=== PATIENT | female | born 1990 | race Caucasian/White ===

== ENCOUNTER → 2018-01-27 10:18 | Outpatient (CLI) | payer OTHER, SELFPAY ==
[2018-01-27 13:29] LABS: Free T3, Triiodothyronine Free 3.82 pg/mL (2.77-5.27); Free T4, Direct Thyroxine 1.57 ng/dL (0.78-2.19)
[2018-01-27 13:42] LABS: Thyroid Stimulating Hormone 0.02 uIU/mL (0.47-4.68)
== END ==
PROVIDERS: Visit Provider Family Medicine
DX: E89.0 Postprocedural hypothyroidism (principal)
CPT/HCPCS: 36415; 84439; 84443; 84481

== ENCOUNTER 2018-03-16 14:51 | Emergency (ER) | payer OTHER, SELFPAY ==
[2018-03-16 14:55] VITALS: BP 113/76; PULSE 75; RESP 15; TEMP 36.1; O2SAT 99; BMI 33.6
--- NOTE | 2018-03-16 14:57 | DI.RAD.S_ITS ---
PROCEDURE: XR FOOT LT MIN 3V INDICATIONS: left foot pain after fall TECHNIQUE: 3 views of the foot were acquired. COMPARISON: None. FINDINGS: Bones: No fractures or dislocations. No suspicious bony lesions. There is a mild degree of metatarsus primus varus and hallux of this morphology with slight bunion formation at the medial first metatarsal head Soft tissues: No tibiotalar joint effusion. Achilles tendon appears normal. IMPRESSION: Podiatry related findings at the first ray and medial first metatarsal head but no fracture or traumatic subluxation is seen. Dictated by: Barrera Teresa M.D. on 03/16/2018 at 15:26 Approved by: Barrera Teresa M.D. on 03/16/2018 at 15:27
--- NOTE | 2018-03-16 17:01 | ED_ITS ---
HPI - Extremity Injury (Lower) <Liss Beaulieu PA-C - Last Filed: 03/16/18 21:28> General Chief Complaint: Extremity Injury, Lower Stated Complaint: left foot injury from fall down stairs Time Seen by Provider: 03/16/18 15:40 Source: patient Mode of arrival: ambulatory Limitations: no limitations History of Present Illness HPI Narrative: This 27-year-old female states that she slipped going down stairs and missed the last step earlier. She inverted her left ankle and foot and has had pain on the outside of her ft since then. It is painful to bear weight and walk but she is able to walk in her stiff-soled slippers. She denies pain in the ankle. She denies hitting her head, actually falling, any other injury. She has not taken any ibuprofen or other medication for this at home. She has not noted any swelling Related Data Home Medications Medication Instructions Recorded Confirmed bupropion HCl SR 100 mg tablet,12 100 mg PO DAILY 01/23/18 01/27/18 hr sustained-release cetirizine 10 mg capsule 10 mg PO DAILY 01/23/18 01/27/18 cholecalciferol (vitamin D3) 5,000 5,000 unit PO DAILY 01/23/18 01/27/18 unit tablet 1 tab PO DAILY 01/23/18 01/27/18 vitamin,calcium,thcunela-xnqj-glmmh acid tablet sertraline 100 mg tablet 100 mg PO DAILY 01/23/18 01/27/18 Previous Rx's Medication Instructions Recorded sertraline 50 mg tablet 50 mg PO DAILY #30 tab 01/23/18 levothyroxine 137 mcg tablet 137 mcg PO DAILY #30 tab 01/31/18 Allergies Allergy/AdvReac Type Severity Reaction Status Date / Time No Known Drug Allergies Allergy Verified 03/16/18 14:55 Review of Systems <Liss Beaulieu PA-C - Last Filed: 03/16/18 21:28> Review of Systems ROS Unobtainable: All systems reviewed & are unremarkable except as noted in HPI and below Exam <Liss Beaulieu PA-C - Last Filed: 03/16/18 21:28> Narrative Exam Narrative: GENERAL: Patient is sitting comfortably DERMATOLOGIC: Left foot no abrasions or ecchymoses MUSCULOSKELETAL: Left foot and ankle, no effusion. Tender over the left 4th and 5th mid metatarsals, no tenderness elsewhere about the foot or ankle. Full range of motion of the ankle. Able to dorsi and plantar flex toes against resistance with and point tenderness but strength intact NEUROVASCULAR: Left foot is warm and pink with intact pedal pulses and sensation grossly intact Initial Vital Signs Initial Vital Signs: Vital Signs Temperature 97.0 F L 03/16/18 14:55 Pulse Rate 75 03/16/18 14:55 Respiratory Rate 15 03/16/18 14:55 Blood Pressure 113/76 03/16/18 14:55 Pulse Oximetry 99 03/16/18 14:55 <Humberto Houston DO - Last Filed: 03/17/18 07:43> Initial Vital Signs Initial Vital Signs: Vital Signs Temperature 97.0 F L 03/16/18 14:55 Pulse Rate 75 03/16/18 14:55 Respiratory Rate 15 03/16/18 14:55 Blood Pressure 113/76 03/16/18 14:55 Pulse Oximetry 99 03/16/18 14:55 Course <LUCY Gagnon Last Filed: 03/16/18 21:28> Orders Ordered: ED Orders 03/16/18 14:57 XR foot LT min 3V Stat Vital Signs - 8 hr 03/16/18 14:55 03/16/18 17:13 Temperature 97.0 F L Pulse Rate 75 70 Respiratory Rate 15 16 Blood Pressure 113/76 111/78 Pulse Oximetry 99 99 <DO Tanya Monsalve Last Filed: 03/17/18 07:43> Orders Ordered: ED Orders 03/16/18 14:57 XR foot LT min 3V Stat Vital Signs - 8 hr 03/16/18 14:55 03/16/18 17:13 Temperature 97.0 F L Pulse Rate 75 70 Respiratory Rate 15 16 Blood Pressure 113/76 111/78 Pulse Oximetry 99 99 MDM - Extremity Injury (Lower) <LUCY Gagnon Last Filed: 03/16/18 21:28> Imaging Data foot: Radiologist's impression: [address] [address] XRay Report Signed Patient: Sabrina Mccoy#: [id number] : 1990Acct:[id number] Age/Sex: 27 / FDate of Service: 03/16/18 Loc: ED Accession Number: [id number] Procedure: XR foot LT min 3V Ordering Provider: Humberto Houston D.O. PROCEDURE: XR FOOT LT MIN 3V INDICATIONS: left foot pain after fall TECHNIQUE: 3 views of the foot were acquired. COMPARISON: None. FINDINGS: Bones: No fractures or dislocations. No suspicious bony lesions. There is a mild degree of metatarsus primus varus and hallux of this morphology with slight bunion formation at the medial first metatarsal head Soft tissues: No tibiotalar joint effusion. Achilles tendon appears normal. IMPRESSION: Podiatry related findings at the first ray and medial first metatarsal head but no fracture or traumatic subluxation is seen. Dictated by: Barrera Teresa M.D. on 03/16/2018 at 15:26 Approved by: Barrera Teresa M.D. on 03/16/2018 at 15:27 Discharge Plan Departure Patient Disposition: Home Clinical Impression: Foot sprain Discharge Date/Time: 03/16/18 17:13 Interventions: ED Discharge Assessment Last Done: 03/16/18 17:13 Instructions: DI for Foot Sprain Activity Restrictions/Additional Instructions: Your x-ray today does not show any acute break, however as we talked about if you are not getting better over the next week, the x-rays should be repeated as occasionally a fracture will not show up on initial x-rays. When you get home, please elevate the foot, apply ice and take 800 mg of ibuprofen. Continue taking that every 8 hr at least for the next couple of days. You can take Tylenol in addition as needed. Gentle walking in a stiff-soled shoe is okay, but please avoid heavy exertion on the foot. Prescriptions: No Action levothyroxine 137 mcg tablet 137 mcg PO DAILY Qty: 30 RF: 2 sertraline [Zoloft] 100 mg tablet 100 mg PO DAILY RF: 0 bupropion HCl [Wellbutrin SR] 100 mg tablet sustained-release 12 hr 100 mg PO DAILY RF: 0 prenat.vits,wes,oze-hcxi-wtyvi tablet 1 tab PO DAILY RF: 0 cholecalciferol (vitamin D3) 5,000 unit tablet 5,000 unit PO DAILY RF: 0 cetirizine [Zyrtec] 10 mg capsule 10 mg PO DAILY RF: 0 sertraline 50 mg tablet 50 mg PO DAILY Qty: 30 RF: 0 Referrals: Tania Mathew DO [Physician] - <Humberto Houston DO - Last Filed: 03/17/18 07:43> Cosign ED Attending [place] Attestation: I was available for consultation during this patient's emergency department encounter
[2018-03-16 17:13] VITALS: BP 111/78; PULSE 70; RESP 16; O2SAT 99
== END 2018-03-16 17:13 | disposition home or self-care (01) ==
PROVIDERS: Emergency Provider Internal Medicine
DX: S93.602A Unspecified sprain of left foot, initial encounter (principal); W10.8XXA Fall (on) (from) other stairs and steps, initial encounter
CPT/HCPCS: 73630; 99282; 99283

== ENCOUNTER → 2018-03-21 15:03 | Outpatient (CLI) | payer OTHER, SELFPAY ==
[2018-03-21 17:11] LABS: Free T3, Triiodothyronine Free 3.07 pg/mL (2.77-5.27); Free T4, Direct Thyroxine 1.11 ng/dL (0.78-2.19)
[2018-03-21 17:24] LABS: Thyroid Stimulating Hormone 0.31 uIU/mL (0.47-4.68)
== END ==
PROVIDERS: PCP Family Medicine; Visit Provider Family Medicine
DX: E03.9 Hypothyroidism, unspecified (principal)
CPT/HCPCS: 36415; 84439; 84443; 84481

== ENCOUNTER → 2018-05-03 14:02 | Outpatient (CLI) | payer OTHER, SELFPAY ==
[2018-05-03 14:36] LABS: Add Manual Diff / Slide Review NO; Basophils Absolute Auto 0 /uL (0-100); Basophils Percent Auto 0.5 % (0-2); Eosinophils Absolute Auto 200 /uL (0-450); Eosinophils Percent Auto 3.8 % (2-4); Hematocrit 38.3 % (36-46); Hemoglobin 13.1 g/dL (12.0-16.0); Lymphocytes Absolute Auto 1100 /uL (1100-4500); Mean Corpuscular HGB Conc 34.2 % (30-36); Mean Corpuscular Hemoglobin 28.6 PG (26-34); Mean Corpuscular Volume 83.7 fL (80-100); Monocytes Absolute Auto 500 /uL (0-900); Monocytes Percent Auto 7.8 % (3-14); Neutrophils Absolute Auto 4500 /uL (1500-7000); Neutrophils Percent Auto 70.9 % (50-75); Platelet Count 276 X10^3/uL (150-400); Red Blood Cell Count 4.58 X10^6/uL (4.0-5.2); Red Cell Distribution Width 12.4 % (11.6-14.8); White Blood Cell Count 6.4 X10^3/uL (4.5-11.0)
[2018-05-03 15:20] LABS: Free T3, Triiodothyronine Free 4.24 pg/mL (2.77-5.27)
[2018-05-03 15:34] LABS: Thyroid Stimulating Hormone 1.79 uIU/mL (0.47-4.68)
[2018-05-03 15:49] LABS: Vitamin B12 704 pg/mL (239-931)
[2018-05-03 17:09] LABS: Vitamin D 25 Hydroxy (D3) 37.2 ng/mL (30.0-100.0)
[2018-05-08 18:49] LABS: Zinc 46 mcg/dL (60-130)
== END ==
PROVIDERS: PCP Family Medicine; Visit Provider Family Medicine
DX: E89.0 Postprocedural hypothyroidism (principal); L71.0 Perioral dermatitis; D64.9 Anemia, unspecified
CPT/HCPCS: 36415; 82306; 82607; 84439; 84443; 84481; 84630; 85025

== ENCOUNTER → 2018-07-31 15:10 | Outpatient (CLI) | payer OTHER, SELFPAY ==
[2018-07-31 16:31] LABS: Free T3, Triiodothyronine Free 4.07 pg/mL (2.77-5.27); Free T4, Direct Thyroxine 0.59 ng/dL (0.78-2.19)
[2018-07-31 16:45] LABS: Thyroid Stimulating Hormone 1.52 uIU/mL (0.47-4.68)
== END ==
PROVIDERS: PCP Family Medicine; Visit Provider Family Medicine
DX: E89.0 Postprocedural hypothyroidism (principal)
CPT/HCPCS: 36415; 84439; 84443; 84481

== ENCOUNTER → 2018-09-07 08:43 | Outpatient (CLI) | payer OTHER, SELFPAY ==
--- NOTE | 2018-09-07 08:43 | DI.US.S_ITS ---
PROCEDURE: US ABDOMEN COMPLETE INDICATIONS: RIGHT UPPER QUADRANT PAIN, DIARRHEA TECHNIQUE: Real-time scanning was performed of the abdominal and retroperitoneal organs, with image documentation. COMPARISON: None. FINDINGS: Liver: Liver is normal in size and homogeneous in echotexture. Gallbladder: Multiple sub-5 mm gallstones, demonstrating mobile appearance. No wall thickening. No pericholecystic fluid. No sonographic Beyer sign. Biliary ducts: Intrahepatic bile ducts are non-dilated. Extrahepatic bile duct caliber measures 3-4 mm. Normal is 6-7 mm or less in diameter, or 10 mm or less post-cholecystectomy. Pancreas: Visualized portions of the pancreas are sonographically normal. Spleen: Spleen is normal in size and homogeneous in echotexture. Echogenic presumed splenic calcified granuloma measuring 6 mm. Kidneys: Kidneys are normal in size and echotexture. Right kidney measures 10.7 cm long; left kidney measures 12.2 cm long. No hydronephrosis or nephrolithiasis. No solid masses. Aorta: Visualized aorta is normal in caliber at less than 3 cm. Iliacs: Proximal common iliac arteries are normal in caliber at less than 2.5 cm. IVC: Intrahepatic inferior vena cava is patent. Miscellaneous: No free abdominal fluid. IMPRESSION: Cholelithiasis, although no other sonographic criteria for acute cholecystitis. Please correlate clinically and with LFTs. Dictated by: Jeffery Nunes M.D. on 09/07/2018 at 11:29 Approved by: Jeffery Nunes M.D. on 09/07/2018 at 11:31
== END ==
PROVIDERS: PCP Family Medicine; Visit Provider Family Medicine
DX: R10.11 Right upper quadrant pain (principal); R19.7 Diarrhea, unspecified; K80.20 Calculus of gallbladder without cholecystitis without obstruction; Z87.19 Personal history of other diseases of the digestive system
CPT/HCPCS: 76700

== ENCOUNTER → 2018-09-21 16:00 | Outpatient (CLI) | payer OTHER, SELFPAY ==
[2018-09-21 17:25] LABS: Free T3, Triiodothyronine Free 3.46 pg/mL (2.77-5.27); Free T4, Direct Thyroxine 0.54 ng/dL (0.78-2.19)
[2018-09-21 17:39] LABS: Thyroid Stimulating Hormone 2.05 uIU/mL (0.47-4.68)
== END ==
PROVIDERS: PCP Family Medicine; Visit Provider Family Medicine
DX: E89.0 Postprocedural hypothyroidism (principal); F41.1 Generalized anxiety disorder
CPT/HCPCS: 36415; 84439; 84443; 84481

== ENCOUNTER 2018-10-30 11:30 | Day surgery (SDC) | payer OTHER, SELFPAY ==
[2018-10-19 13:54] VITALS: BMI 31.8
[2018-10-30] VITALS (10 sets, daily range): BP systolic 89–117; BP diastolic 49–78; PULSE 57–89; RESP 7–16; TEMP 36.3–37.2; O2SAT 99–100; BMI 30.9
--- NOTE | 2018-10-30 | PATH_ITS ---
[facility] Accession Number: [id number] . 01 Material submitted: . gallbladder - GALLBLADDER . 01 Clinical history: . CALCULUS OF GALLBLADDER WITHOUT CHOLECYSTITIS CHOLECYSTITIS, UNSPECIFIED . 01 Diagnosis: Gallbladder, Cholecystectomy: Mild chronic cholecystitis and cholelithiasis. Benign, reactive lymph node of cystic duct is also present. Negative for atypia and malignancy. MRV 11/02/2018 1536 Local . 01 Electronically signed: . Hernandez Sharma MD, Pathologist NPI- [id number] . 01 Gross description: . Received in formalin, labeled gallbladder, is a perforated gallbladder (length-11.5 cm, diameter-2.6 cm) with pale green smooth shiny serosa and a patent cystic duct. A possible lymph node (0.7 x 0.6 x 0.2 cm) is identified. The lumen contains dark green gelatinous bile and multiple lang-yellow smooth hard and partially friable calculi (9.5 x 3.5 x 2.5 cm in aggregate). The mucosa is lang-green smooth and flat. The wall is up to 0.1 cm thick. No nodules, masses or lesions are identified. Section code: (A1) cystic duct resection margin and two serial sections from the body; (A2) two longitudinal sections from the fundus; (A3) one trisected lymph node. ([id number]) /MRV 10/31/2018 1008 Local . 01 Pathologist provided ICD-10: K80.20, K81.9 . 01 CPT . 856852 Performed at: [address], [place], [place] [id number] MD Sd Arambula MD Phone: [phone]
[2018-10-30] MEDS: LACTATED RINGERS 1,000 ML 42 ML IV (12:20)
--- NOTE | 2018-10-30 12:23 | PM.PREOP ---
Pre-operative Note Interval Note History & Physical reviewed/Exam performed by Physician: Yes Changes to H&P: No H&P completed within 30 days and has changed as indicated here:: Please see ED note from October 03
[2018-10-30] MEDS: SCOPOLAMINE 1 PATCH TOP (12:32)
[2018-10-30] MEDS: ACETAMINOPHEN 325 MG TABLET 975 MG PO (12:32)
[2018-10-30] MEDS: CEFAZOLIN 2 GM/100 ML FROZ.PIGGY IV (12:50)
--- NOTE | 2018-10-30 13:25 | SUR.OPER ---
Supine on padded OR bed, head on pillow, safety belt at thigh, left arm padded and tucked at side. Right arm secured on padded arm oard <90 degrees abduction. Legs uncrossed. Padded footboard in place. Tape over blanket to secure lower legs.
[2018-10-30] MEDS: BUPIVACAINE 0.5% (PF) VIAL 30 ML INJ (13:36)
--- NOTE | 2018-10-30 14:19 | PM.OP.1 ---
Operative Date/Time/Diagnoses Date of procedure: 10/30/18 Time of procedure: 14:21 Pre-op diagnosis: Cholelithiasis cholecystitis chronic Post-op diagnosis: same Procedure & Clinicians Procedure: Laparoscopic cholecystectomy Same procedure as scheduled: Yes Indications: Patient with symptomatic gallbladder disease and stones within the duct. No history of jaundice. Surgeon: Gutierrez Deshpande Click Yes if Unassisted: Yes Anesthesia Type: General Operative Notes Findings: Gallbladder filled with stones Closure Type: primary Specimen(s): other (Gallbladder and contents) Prosthetic devices, grafts, tissues, transplants, or devices: None Estimated Blood Loss (mL): 10 Blood products transfused: none Procedure in detail: The patient was placed supine on the operating room table and underwent general endotracheal anesthesia. The patient was prepped and draped in the usual fashion. Local anesthetic was infiltrated near the umbilicus and curvilinear incision made and carried down through fascia into the peritoneal cavity. Stay sutures of 0 Vicryl were placed in the fascia. A 12 mm port was placed. The abdomen was insufflated. The patient was repositioned. Local anesthetic was infiltrated in 3 areas under the right costal margin and 3 small incisions made followed by placing 3 5 mm ports under direct laparoscopic camera vision internally. The gallbladder was grasped and elevated. Dissection was begun near its end. The right hepatic artery was readily visible within the field in the segun. I dissected very carefully to avoid injury to it. A ductal structure singular nature going directly the gallbladder was from surrounding structures and 3 clips were placed across it. It was divided leaving 2 in the patient. In a similar fashion small vascular structures were also handled. Care was taken to avoid injury to the major artery. The gallbladder was then dissected from its bed in the liver using cautery.. It was detached and removed through the umbilical port. the port sites were all irrigated. The stay sutures at the umbilicus were elevated. A 2 0 PDS suture was placed between them. The Vicryl and PDS sutures were then tied. The skin in all areas was closed with interrupted 4 0 Vicryl subcuticular stitches. Steri-Strips and Mastisol were applied. Band-Aids were placed and the patient was awakened, extubated and taken to the recovery area in good condition. Complications: none Post-operative Condition: stable Disposition: PACU
[2018-10-30] MEDS: fentaNYL 100 MCG/2 ML INJ 50 MCG IV ×2 (14:31→14:45)
--- NOTE | 2018-10-30 14:33 | SUR.PHASEI ---
Pt arrived, pb nye applied, shakes resolved. medicated with fentanyl see emar. report to megan sterling.
[2018-10-30] MEDS: OXYCODONE IR 5 MG TABLET PO (14:57)
== END 2018-10-30 15:59 | disposition home or self-care (01) ==
PROVIDERS: PCP Family Medicine; Visit Provider Specialist
PROC: 0FT44ZZ Resection of Gallbladder, Percutaneous Endoscopic Approach (ICD-10-PCS; CPT 47562; principal; 2018-10-30 12:45)
DX: K80.10 Calculus of gallbladder with chronic cholecystitis without obstruction; F41.9 Anxiety disorder, unspecified; F32.9 Major depressive disorder, single episode, unspecified; E03.9 Hypothyroidism, unspecified
CPT/HCPCS: 47562; J0330; J0690; J1100; J1885; J2405; J2704; J3010

== ENCOUNTER → 2018-11-24 13:00 | Outpatient (CLI) | payer OTHER, SELFPAY ==
[2018-11-24 15:31] LABS: Free T3, Triiodothyronine Free 5.16 pg/mL (2.77-5.27); Free T4, Direct Thyroxine 0.63 ng/dL (0.78-2.19)
[2018-11-24 15:45] LABS: Thyroid Stimulating Hormone 3.78 uIU/mL (0.47-4.68)
== END ==
PROVIDERS: PCP Family Medicine; Visit Provider Family Medicine
DX: E89.0 Postprocedural hypothyroidism (principal)
CPT/HCPCS: 36415; 84439; 84443; 84481

== ENCOUNTER → 2018-12-13 17:39 | Outpatient (CLI) | payer OTHER, SELFPAY ==
--- NOTE | 2018-12-13 17:43 | DI.RAD.S_ITS ---
PROCEDURE: XR SHOULDER LT MIN 2V INDICATIONS: Pain, decreased ROM, r/o AC separation TECHNIQUE: 3 views of the shoulder were acquired. COMPARISON: None. FINDINGS: Bones: No acute fractures or dislocations. No suspicious bony lesions. Visualized ribs appear intact. The acromioclavicular interval measures within normal limits. The coracoclavicular interval measures at the upper limits of normal. Soft tissues: No suspicious soft tissue calcifications. IMPRESSION: Left shoulder without acute fracture or dislocation. Normal acromioclavicular interval. The coracoclavicular interval measures at the upper limits of normal. If there is persistent clinical concern for acromioclavicular joint separation, recommend dedicated imaging of the acromioclavicular joint with and without weights. Dictated by: Rolo Torres M.D. on 12/13/2018 at 18:01 Approved by: Rolo Torres M.D. on 12/13/2018 at 18:03
== END ==
PROVIDERS: PCP Family Medicine; Visit Provider Physician Assistant
DX: M25.512 Pain in left shoulder (principal)
CPT/HCPCS: 73030

== ENCOUNTER → 2019-01-29 10:02 | Outpatient (CLI) | payer OTHER, SELFPAY ==
[2019-01-29 11:40] LABS: Free T3, Triiodothyronine Free 4.93 pg/mL (2.77-5.27); Free T4, Direct Thyroxine 0.56 ng/dL (0.78-2.19)
[2019-01-29 11:53] LABS: Thyroid Stimulating Hormone 3.46 uIU/mL (0.47-4.68)
== END ==
PROVIDERS: PCP Family Medicine; Visit Provider Family Medicine
DX: E89.0 Postprocedural hypothyroidism (principal)
CPT/HCPCS: 36415; 84439; 84443; 84481

== ENCOUNTER → 2019-03-27 11:02 | Outpatient (CLI) | payer OTHER, SELFPAY ==
[2019-03-27 12:48] LABS: Free T4, Direct Thyroxine 0.65 ng/dL (0.78-2.19)
[2019-03-27 13:02] LABS: Thyroid Stimulating Hormone 0.58 uIU/mL (0.47-4.68)
== END ==
PROVIDERS: PCP Family Medicine; Referring Provider Family Medicine; Visit Provider Family Medicine
DX: E89.0 Postprocedural hypothyroidism (principal)
CPT/HCPCS: 36415; 84439; 84443; 84481

== ENCOUNTER → 2019-09-19 10:23 | Outpatient (CLI) | payer OTHER, SELFPAY ==
[2019-09-19 12:41] LABS: Free T4, Direct Thyroxine 0.59 ng/dL (0.78-2.19)
[2019-09-19 12:55] LABS: Thyroid Stimulating Hormone 1.05 uIU/mL (0.47-4.68)
== END ==
PROVIDERS: PCP Family Medicine; Referring Provider Family Medicine; Visit Provider Family Medicine
DX: E89.0 Postprocedural hypothyroidism (principal)
CPT/HCPCS: 36415; 84439; 84443; 84481

== ENCOUNTER → 2019-11-07 17:03 | Outpatient (CLI) | payer OTHER, SELFPAY ==
[2019-11-07 18:40] LABS: Free T3, Triiodothyronine Free 2.91 pg/mL (2.77-5.27); Free T4, Direct Thyroxine 1.13 ng/dL (0.78-2.19)
[2019-11-07 18:54] LABS: Thyroid Stimulating Hormone 0.223 uIU/mL (0.47-4.68)
== END ==
PROVIDERS: PCP Family Medicine; Referring Provider Family Medicine; Visit Provider Family Medicine
DX: E89.0 Postprocedural hypothyroidism (principal)
CPT/HCPCS: 36415; 84439; 84443; 84481

== ENCOUNTER → 2020-02-05 11:41 | Outpatient (CLI) | payer OTHER, SELFPAY ==
[2020-02-05 12:11] LABS: Add Manual Diff / Slide Review NO; Basophils Absolute Auto 100 /uL (0-100); Basophils Percent Auto 0.8 % (0-2); Eosinophils Absolute Auto 200 /uL (0-450); Eosinophils Percent Auto 2.9 % (2-4); Hematocrit 34.7 % (36-46); Hemoglobin 11.7 g/dL (12.0-16.0); Lymphocytes Absolute Auto 1800 /uL (1100-4500); Lymphocytes Percent Auto 27.5 % (25-40); Mean Corpuscular HGB Conc 33.7 % (30-36); Mean Corpuscular Hemoglobin 28.7 PG (26-34); Mean Corpuscular Volume 85.3 fL (80-100); Monocytes Absolute Auto 400 /uL (0-900); Monocytes Percent Auto 6.6 % (3-14); Neutrophils Absolute Auto 4100 /uL (1500-7000); Neutrophils Percent Auto 62.2 % (50-75); Platelet Count 276 X10^3/uL (150-400); Red Blood Cell Count 4.07 X10^6/uL (4.0-5.2); Red Cell Distribution Width 12.8 % (11.6-14.8); White Blood Cell Count 6.6 X10^3/uL (4.5-11.0)
[2020-02-05 12:22] LABS: Hemoglobin A1C% w Est Avg Glu 5.1 % (4.0-6.0)
[2020-02-05 12:45] LABS: Free T3, Triiodothyronine Free 3.19 pg/mL (2.77-5.27); Free T4, Direct Thyroxine 1.36 ng/dL (0.78-2.19)
[2020-02-05 12:59] LABS: Thyroid Stimulating Hormone < 0.015 uIU/mL (0.47-4.68)
== END ==
PROVIDERS: PCP Family Medicine; Referring Provider Family Medicine; Visit Provider Family Medicine
DX: E89.0 Postprocedural hypothyroidism (principal); Z13.0 Encounter for screening for diseases of the blood and blood-forming organs and certain disorders involving the immune mechanism; Z83.3 Family history of diabetes mellitus
CPT/HCPCS: 36415; 83036; 84439; 84443; 84481; 85025

== ENCOUNTER 2020-03-29 14:21 | Emergency (ER) | payer OTHER, SELFPAY ==
[2020-03-29 14:45] VITALS: BP 124/90; PULSE 87; RESP 18; TEMP 36.9; O2SAT 99; BMI 30.9
[2020-03-29 14:55] LABS: Add Manual Diff / Slide Review NO; Basophils Absolute Auto 100 /uL (0-100); Basophils Percent Auto 0.6 % (0-2); Eosinophils Absolute Auto 0 /uL (0-450); Eosinophils Percent Auto 0.5 % (2-4); Hematocrit 40.1 % (36-46); Hemoglobin 13.6 g/dL (12.0-16.0); Lymphocytes Absolute Auto 2000 /uL (1100-4500); Lymphocytes Percent Auto 19.6 % (25-40); Mean Corpuscular Volume 85.3 fL (80-100); Monocytes Absolute Auto 600 /uL (0-900); Monocytes Percent Auto 5.7 % (3-14); Neutrophils Absolute Auto 7500 /uL (1500-7000); Neutrophils Percent Auto 73.6 % (50-75); Platelet Count 352 X10^3/uL (150-400); Red Blood Cell Count 4.71 X10^6/uL (4.0-5.2); Red Cell Distribution Width 12.9 % (11.6-14.8); White Blood Cell Count 10.2 X10^3/uL (4.5-11.0)
[2020-03-29 15:08] LABS: Acetaminophen < 10 ug/mL (10-30); Alanine Aminotransferase 16 IU/L (<35); Albumin 5.1 g/dL (3.5-5.0); Albumin Globulin Ratio 1.3 (1.0-2.8); Alkaline Phosphatase 84 U/L (38-126); Aspartate Aminotransferase 21 IU/L (14-36); BUN Creatinine Ratio 21.5 (6-22); Bilirubin Total 0.4 mg/dL (0.2-1.3); Blood Urea Nitrogen 14 mg/dL (7-17); Calcium 9.8 mg/dL (8.4-10.2); Carbon Dioxide 26 mmol/L (22-32); Chloride 102 mmol/L (98-107); Estimated Glomerular Filt Rate > 60.0 mL/min (>60); Ethanol (ETOH) < 10 mg/dL; Glucose 105 mg/dL (70-100); HEMOLYSIS < 15 (0-50); Potassium 3.9 mmol/L (3.4-5.1); Salicylate < 1.0 mg/dL (<20); Sodium 138 mmol/L (137-145); Total Protein 9.1 g/dL (6.3-8.2)
[2020-03-29 15:09] LABS: UR Morphine/Opiate cutoff 300 Negative (Negative); Ur Creatinine Normal (Normal); Ur Specific Gravity Normal (Normal); Urine Amphetamines Negative (Negative); Urine Barbiturates Negative (Negative); Urine Benzodiazepines Negative (Negative); Urine Cocaine Negative (Negative); Urine MDMA Negative (Negative); Urine Methadone Negative (Negative); Urine Methamphetamines Negative (Negative); Urine Oxycodone Negative (Negative); Urine Phencyclidine Negative (Negative); Urine Tetrahydrocannabinol Positive (Negative); Urine Tricyclic Antidepressant Negative (Negative); Urine pH Normal (Normal)
--- NOTE | 2020-03-29 15:28 | ED.PSYCH ---
HPI - Psych <JANA Byrnes-BC - Last Filed: 03/29/20 16:01> General Chief Complaint: Psychiatric Symptoms Stated Complaint: depressing thoughts Time Seen by Provider: 03/29/20 14:26 Source: patient Mode of arrival: Ambulatory Limitations: no limitations History of Present Illness HPI Narrative: The patient is a 29-year-old female current smoker with history of depression, hypothyroidism and generalized anxiety disorder who presents with a chief complaint of depressing thoughts and suicidal ideations. She states she does not have a current plan. However she states that if her house run fire, she would not leave it and she would not get out of the way of a truck if it were about to hit her. She states she has multiple stressors at home including her being deployed, 3 children at home and family dynamics. She states she has been working with primary care provider to increase her antidepressants, however she feels like she can no longer cope and needs help. She states that she has never tried to kill herself, though she has a history of cutting. She used p.o. lorazepam given to her by her primary care provider yesterday and today. She states she is crying all the time. She presents requesting psychiatric assistance. Related Data Previous Rx's Medication Instructions Recorded lorazepam 0.5 mg tablet See Rx Instructions PO DAILY PRN 05/03/18 #30 tab levothyroxine 137 mcg tablet 137 mcg PO DAILY #90 tab 03/10/20 venlafaxine 225 mg tablet,extended 225 mg PO DAILY #30 tab 03/28/20 release 24 hr Allergies Allergy/AdvReac Type Severity Reaction Status Date / Time No Known Drug Allergies Allergy Verified 03/29/20 14:41 Review of Systems <ALTAGRACIA Byrnes - Last Filed: 03/29/20 16:01> Review of Systems Narrative: GENERAL: Denies chills, fatigue, malaise, fever, sweats. HEENT: Denies sinus pain, ear pain, sore throat, difficulty swallowing, dizziness. RESPIRATORY: Denies dyspnea, cough, wheezing, hemoptysis, sputum. CARDIOVASCULAR: Denies chest pain, palpitations, orthopnea, edema, GASTROINTESTINAL: Denies nausea, vomiting, abdominal pain, diarrhea, constipation, melena. : Denies dysuria, frequency, incontinence, hematuria, urinary retention. MUSCULOSKELETAL: denies weakness, joint pain, or bony pain SKIN: Denies rash, skin lesions, or other NEUROLOGIC: Denies weakness, headache, numbness, change in speech, confusion, seizures, incoordination. PSYCHIATRIC: See HPI 12 point review of systems is negative except for those stated above Patient History <ALTAGRACIA Byrnes - Last Filed: 03/29/20 16:01> Medical History Adult acne Anxiety Depression Eczema Generalized anxiety disorder with panic attacks Heavy menstrual period Hypothyroidism (~2017) Perioral dermatitis Surgical History Anesthesia Previous section (~05/14/15) S/P thyroidectomy (~07/21/17) Status post laparoscopic cholecystectomy Family History Mother Mental health problem Brother Cerebral palsy Brother Mental health problem Sister Mental health problem Grandfather Cancer Grandmother Skin cancer Diabetes mellitus Grandfather Cancer Hyperlipidemia Alcoholic Grandmother Diabetes mellitus Social History marital status: number of children: 3 household members: family lives independently: Yes education level: college occupational status: other Smoking Status: Current every day smoker alcohol intake: current substance use type: does not use Smoking Status: Current every day smoker tobacco type: vaping alcohol intake frequency: holidays/special occasions only Substance Use Type: marijuana Exam <ALTAGRACIA Byrnes - Last Filed: 03/29/20 16:01> Narrative Exam Narrative: GENERAL: This is a well-nourished, well-developed patient, in no acute distress, teary HEAD: Atraumatic. Normocephalic. No temporal or scalp tenderness. EYES: Pupils equal round and reactive. Extraocular motions intact. No scleral icterus. No injection or drainage. ENT: Nose without bleeding, purulent drainage or septal hematoma. Wearing a mask. Airway patent. NECK: Trachea midline. No JVD or lymphadenopathy. Supple, nontender, no meningeal signs. CARDIOVASCULAR: Regular rate and rhythm RESPIRATORY: Clear to auscultation. Breath sounds equal bilaterally. No wheezes, rales, or rhonchi. No cough. No increased respiratory effort. No accessory muscle use. GASTROINTESTINAL: Abdomen soft, non-tender, nondistended. No hepato-splenomegaly, or palpable masses. No guarding. EXTREMITIES: No clubbing, cyanosis, or edema. No joint tenderness, effusion, or edema noted. BACK: Nontender without deformity or crepitance. No flank tenderness. NEURO: AOx3. Teary, anxious SKIN: No rash or erythema on visible skin Initial Vital Signs Initial Vital Signs: Vital Signs Temperature 98.4 F 03/29/20 14:45 Pulse Rate 87 03/29/20 14:45 Respiratory Rate 18 03/29/20 14:45 Blood Pressure 124/90 03/29/20 14:45 Pulse Oximetry 99 03/29/20 14:45 <Humberto Houston DO - Last Filed: 03/29/20 17:46> Initial Vital Signs Initial Vital Signs: Vital Signs Temperature 98.4 F 03/29/20 14:45 Pulse Rate 87 03/29/20 14:45 Respiratory Rate 18 03/29/20 14:45 Blood Pressure 124/90 03/29/20 14:45 Pulse Oximetry 99 03/29/20 14:45 Scores <ALTAGRACIA Byrnes - Last Filed: 03/29/20 16:01> GCS Sarkis coma scale eye opening: Spontaneous Sarkis coma scale verbal response: Orientated Sarkis coma scale motor response: Obey commands [place] coma scale total score: 15 Course <ALTAGRACIA Byrnes - Last Filed: 03/29/20 16:01> Orders Ordered: ED Orders 03/29/20 14:32 Acetaminophen Stat Complete Blood Count AUTO DIFF Stat Comprehensive Metabolic Panel Stat Ethanol (ETOH) Stat Free T4, Direct Thyroxine Stat Salicylate Stat Thyroid Stimulating Hormone Stat Urine Drug Screen, Rapid Stat Urine Microscopic Stat 03/29/20 14:33 Consult to METAL FURNITURE ASSEMBLY SUPERVISOR - Last Dipper Stat 03/29/20 14:57 COVID19 Stat Discontinued Medications Nicotine (Nicotine 21 Mg Patch) 21 mg TOP NOW ONE Stop: 03/29/20 16:06 Last Admin: 03/29/20 16:13 Dose: 21 mg Documented by: LAURA Vital Signs Vital signs: Vital Signs - 8 hr 03/29/20 14:45 Temperature 98.4 F Pulse Rate 87 Respiratory Rate 18 Blood Pressure 124/90 Pulse Oximetry 99 <Humberto Houston DO - Last Filed: 03/29/20 17:46> Orders Ordered: ED Orders 03/29/20 14:32 Acetaminophen Stat Complete Blood Count AUTO DIFF Stat Comprehensive Metabolic Panel Stat Ethanol (ETOH) Stat Free T4, Direct Thyroxine Stat Salicylate Stat Thyroid Stimulating Hormone Stat Urine Drug Screen, Rapid Stat Urine Microscopic Stat 03/29/20 14:33 Consult to METAL FURNITURE ASSEMBLY SUPERVISOR - Last Dipper Stat 03/29/20 14:57 COVID19 Stat Discontinued Medications Nicotine (Nicotine 21 Mg Patch) 21 mg TOP NOW ONE Stop: 03/29/20 16:06 Last Admin: 03/29/20 16:13 Dose: 21 mg Documented by: LAURA Vital Signs Vital signs: Vital Signs - 8 hr 03/29/20 14:45 Temperature 98.4 F Pulse Rate 87 Respiratory Rate 18 Blood Pressure 124/90 Pulse Oximetry 99 MDM - Psych <DEISY ByrnesBC - Last Filed: 03/29/20 16:01> Lab Data Attestation: I reviewed the patient's lab results. Result diagrams: 03/29/20 14:32 03/29/20 14:32 Labs: Lab Results 03/29/20 03/29/20 03/29/20 Range/Units 14:32 14:32 14:32 WBC 10.2 (4.5-11.0) X10^3/uL RBC 4.71 (4.0-5.2) X10^6/uL Hgb 13.6 (12.0-16.0) g/dL Hct 40.1 (36-46) % MCV 85.3 (80-100) fL MCH 29.0 (26-34) PG MCHC 34.0 (30-36) % RDW 12.9 (11.6-14.8) % Plt Count 352 (150-400) X10^3/uL Neut % (Auto) 73.6 (50-75) % Lymph % (Auto) 19.6 L (25-40) % [place] % (Auto) 5.7 (3-14) % Eos % (Auto) 0.5 L (2-4) % Baso % (Auto) 0.6 (0-2) % Neut # (Auto) 7500 H (7558-1623) /uL Lymph # (Auto) 2000 (1811-5411) /uL [place] # (Auto) 600 (0-900) /uL Eos # (Auto) 0 (0-450) /uL Baso # (Auto) 100 (0-100) /uL Sodium 138 (137-145) mmol/L Potassium 3.9 (3.4-5.1) mmol/L Chloride 102 (98-107) mmol/L Carbon Dioxide 26 (22-32) mmol/L BUN 14 (7-17) mg/dL Creatinine 0.65 (0.52-1.04) mg/dL Estimated GFR > 60.0 (>60) mL/min BUN/Creatinine Ratio 21.5 (6-22) Glucose 105 H (70-100) mg/dL Calcium 9.8 (8.4-10.2) mg/dL Total Bilirubin 0.4 (0.2-1.3) mg/dL AST 21 (14-36) IU/L ALT 16 (<35) IU/L Alkaline Phosphatase 84 (38-126) U/L Total Protein 9.1 H (6.3-8.2) g/dL Albumin 5.1 H (3.5-5.0) g/dL Globulin 4.0 (1.7-4.1) g/dL Albumin/Globulin Ratio 1.3 (1.0-2.8) TSH 0.120 L (0.47-4.68) uIU/mL Free T4 2.24 H (0.78-2.19) ng/dL Urine RBC (0-5/HPF) Urine WBC (0-5/HPF) Ur Squamous Epith Cells (0-5/HPF) Amorphous Sediment Urine Bacteria (None) Ur Culture Indicated? Micro UA Comment Salicylates < 1.0 (<20) mg/dL U Opiates 300ng/mL cut (Negative) Ur Oxycodone Screen (Negative) Urine Methadone Screen (Negative) Acetaminophen < 10 L (10-30) ug/mL Ur Barbiturates Screen (Negative) U Tricyclic Antidepress (Negative) Ur Phencyclidine Scrn (Negative) Ur Amphetamines Screen (Negative) U Methamphetamines Scrn (Negative) Ur MDMA Scrn (Ecstasy) (Negative) U Benzodiazepines Scrn (Negative) Urine Cocaine Screen (Negative) U Marijuana (THC) Screen (Negative) Ethyl Alcohol < 10 ( - 10) mg/dL SARS-CoV-2 (PCR) (Negative) 03/29/20 03/29/20 03/29/20 Range/Units 14:32 14:32 14:57 WBC (4.5-11.0) X10^3/uL RBC (4.0-5.2) X10^6/uL Hgb (12.0-16.0) g/dL Hct (36-46) % MCV (80-100) fL MCH (26-34) PG MCHC (30-36) % RDW (11.6-14.8) % Plt Count (150-400) X10^3/uL Neut % (Auto) (50-75) % Lymph % (Auto) (25-40) % [place] % (Auto) (3-14) % Eos % (Auto) (2-4) % Baso % (Auto) (0-2) % Neut # (Auto) (5069-7787) /uL Lymph # (Auto) (7612-8859) /uL [place] # (Auto) (0-900) /uL Eos # (Auto) (0-450) /uL Baso # (Auto) (0-100) /uL Sodium (137-145) mmol/L Potassium (3.4-5.1) mmol/L Chloride (98-107) mmol/L Carbon Dioxide (22-32) mmol/L BUN (7-17) mg/dL Creatinine (0.52-1.04) mg/dL Estimated GFR (>60) mL/min BUN/Creatinine Ratio (6-22) Glucose (70-100) mg/dL Calcium (8.4-10.2) mg/dL Total Bilirubin (0.2-1.3) mg/dL AST (14-36) IU/L ALT (<35) IU/L Alkaline Phosphatase (38-126) U/L Total Protein (6.3-8.2) g/dL Albumin (3.5-5.0) g/dL Globulin (1.7-4.1) g/dL Albumin/Globulin Ratio (1.0-2.8) TSH (0.47-4.68) uIU/mL Free T4 (0.78-2.19) ng/dL Urine RBC None seen (0-5/HPF) Urine WBC 1-5/hpf (0-5/HPF) Ur Squamous Epith Cells 5-10 /hpf H (0-5/HPF) Amorphous Sediment 3+ Urine Bacteria None seen (None) Ur Culture Indicated? Cult not indicated Micro UA Comment Tnp-no spin Salicylates (<20) mg/dL U Opiates 300ng/mL cut Negative (Negative) Ur Oxycodone Screen Negative (Negative) Urine Methadone Screen Negative (Negative) Acetaminophen (10-30) ug/mL Ur Barbiturates Screen Negative (Negative) U Tricyclic Antidepress Negative (Negative) Ur Phencyclidine Scrn Negative (Negative) Ur Amphetamines Screen Negative (Negative) U Methamphetamines Scrn Negative (Negative) Ur MDMA Scrn (Ecstasy) Negative (Negative) U Benzodiazepines Scrn Negative (Negative) Urine Cocaine Screen Negative (Negative) U Marijuana (THC) Screen Positive H (Negative) Ethyl Alcohol ( - 10) mg/dL SARS-CoV-2 (PCR) Negative (Negative) Point of Care Testing Test Results Negative Urine Dip Bedside Urine Glucose Negative Bedside Urine Bilirubin + 1 Bedside Urine Ketone - Negative Urine Specific [place] 1.030 Bedside Urine Occult Blood - Negative Bedside Urine pH 6 Bedside Urine Protein ++ 100 Bedside Urine Urobilinogen - Negative Bedside Urine Nitrite - Negative Bedside Urine Leukocytes - Negative Esterase MDM Narrative Medical decision making narrative: The patient is a 29-year-old female who presents with a chief complaint of suicidal ideations with no plan. She is voluntary at this point. Evaluated by Kashif GREEN. Patient had medical clearance labs done. Signed out to Dr Houston at 16:00 <Humberto Houston, - Last Filed: 03/29/20 17:46> Lab Data Labs: Lab Results 03/29/20 03/29/20 03/29/20 Range/Units 14:32 14:32 14:32 WBC 10.2 (4.5-11.0) X10^3/uL RBC 4.71 (4.0-5.2) X10^6/uL Hgb 13.6 (12.0-16.0) g/dL Hct 40.1 (36-46) % MCV 85.3 (80-100) fL MCH 29.0 (26-34) PG MCHC 34.0 (30-36) % RDW 12.9 (11.6-14.8) % Plt Count 352 (150-400) X10^3/uL Neut % (Auto) 73.6 (50-75) % Lymph % (Auto) 19.6 L (25-40) % [place] % (Auto) 5.7 (3-14) % Eos % (Auto) 0.5 L (2-4) % Baso % (Auto) 0.6 (0-2) % Neut # (Auto) 7500 H (7865-8501) /uL Lymph # (Auto) 2000 (3968-5240) /uL [place] # (Auto) 600 (0-900) /uL Eos # (Auto) 0 (0-450) /uL Baso # (Auto) 100 (0-100) /uL Sodium 138 (137-145) mmol/L Potassium 3.9 (3.4-5.1) mmol/L Chloride 102 (98-107) mmol/L Carbon Dioxide 26 (22-32) mmol/L BUN 14 (7-17) mg/dL Creatinine 0.65 (0.52-1.04) mg/dL Estimated GFR > 60.0 (>60) mL/min BUN/Creatinine Ratio 21.5 (6-22) Glucose 105 H (70-100) mg/dL Calcium 9.8 (8.4-10.2) mg/dL Total Bilirubin 0.4 (0.2-1.3) mg/dL AST 21 (14-36) IU/L ALT 16 (<35) IU/L Alkaline Phosphatase 84 (38-126) U/L Total Protein 9.1 H (6.3-8.2) g/dL Albumin 5.1 H (3.5-5.0) g/dL Globulin 4.0 (1.7-4.1) g/dL Albumin/Globulin Ratio 1.3 (1.0-2.8) TSH 0.120 L (0.47-4.68) uIU/mL Free T4 2.24 H (0.78-2.19) ng/dL Urine RBC (0-5/HPF) Urine WBC (0-5/HPF) Ur Squamous Epith Cells (0-5/HPF) Amorphous Sediment Urine Bacteria (None) Ur Culture Indicated? Micro UA Comment Salicylates < 1.0 (<20) mg/dL U Opiates 300ng/mL cut (Negative) Ur Oxycodone Screen (Negative) Urine Methadone Screen (Negative) Acetaminophen < 10 L (10-30) ug/mL Ur Barbiturates Screen (Negative) U Tricyclic Antidepress (Negative) Ur Phencyclidine Scrn (Negative) Ur Amphetamines Screen (Negative) U Methamphetamines Scrn (Negative) Ur MDMA Scrn (Ecstasy) (Negative) U Benzodiazepines Scrn (Negative) Urine Cocaine Screen (Negative) U Marijuana (THC) Screen (Negative) Ethyl Alcohol < 10 ( - 10) mg/dL SARS-CoV-2 (PCR) (Negative) 03/29/20 03/29/20 03/29/20 Range/Units 14:32 14:32 14:57 WBC (4.5-11.0) X10^3/uL RBC (4.0-5.2) X10^6/uL Hgb (12.0-16.0) g/dL Hct (36-46) % MCV (80-100) fL MCH (26-34) PG MCHC (30-36) % RDW (11.6-14.8) % Plt Count (150-400) X10^3/uL Neut % (Auto) (50-75) % Lymph % (Auto) (25-40) % [place] % (Auto) (3-14) % Eos % (Auto) (2-4) % Baso % (Auto) (0-2) % Neut # (Auto) (3372-4650) /uL Lymph # (Auto) (8705-2040) /uL [place] # (Auto) (0-900) /uL Eos # (Auto) (0-450) /uL Baso # (Auto) (0-100) /uL Sodium (137-145) mmol/L Potassium (3.4-5.1) mmol/L Chloride (98-107) mmol/L Carbon Dioxide (22-32) mmol/L BUN (7-17) mg/dL Creatinine (0.52-1.04) mg/dL Estimated GFR (>60) mL/min BUN/Creatinine Ratio (6-22) Glucose (70-100) mg/dL Calcium (8.4-10.2) mg/dL Total Bilirubin (0.2-1.3) mg/dL AST (14-36) IU/L ALT (<35) IU/L Alkaline Phosphatase (38-126) U/L Total Protein (6.3-8.2) g/dL Albumin (3.5-5.0) g/dL Globulin (1.7-4.1) g/dL Albumin/Globulin Ratio (1.0-2.8) TSH (0.47-4.68) uIU/mL Free T4 (0.78-2.19) ng/dL Urine RBC None seen (0-5/HPF) Urine WBC 1-5/hpf (0-5/HPF) Ur Squamous Epith Cells 5-10 /hpf H (0-5/HPF) Amorphous Sediment 3+ Urine Bacteria None seen (None) Ur Culture Indicated? Cult not indicated Micro UA Comment Tnp-no spin Salicylates (<20) mg/dL U Opiates 300ng/mL cut Negative (Negative) Ur Oxycodone Screen Negative (Negative) Urine Methadone Screen Negative (Negative) Acetaminophen (10-30) ug/mL Ur Barbiturates Screen Negative (Negative) U Tricyclic Antidepress Negative (Negative) Ur Phencyclidine Scrn Negative (Negative) Ur Amphetamines Screen Negative (Negative) U Methamphetamines Scrn Negative (Negative) Ur MDMA Scrn (Ecstasy) Negative (Negative) U Benzodiazepines Scrn Negative (Negative) Urine Cocaine Screen Negative (Negative) U Marijuana (THC) Screen Positive H (Negative) Ethyl Alcohol ( - 10) mg/dL SARS-CoV-2 (PCR) Negative (Negative) Point of Care Testing Test Results Negative Urine Dip Bedside Urine Glucose Negative Bedside Urine Bilirubin + 1 Bedside Urine Ketone - Negative Urine Specific [place] 1.030 Bedside Urine Occult Blood - Negative Bedside Urine pH 6 Bedside Urine Protein ++ 100 Bedside Urine Urobilinogen - Negative Bedside Urine Nitrite - Negative Bedside Urine Leukocytes - Negative Esterase MDM Narrative Medical decision making narrative: Dr houston: Patient is medically cleared. Patient has been seen by social work. She is voluntary stating that she needs help for depression and cannot contract for safety. Care turned over to Dr Arteaga at change shift for disposition. Discharge Plan Departure Prescriptions: No Action levothyroxine 137 mcg tablet 137 mcg PO DAILY Qty: 90 RF: 1 venlafaxine 225 mg tablet extended release 24hr 225 mg PO DAILY Qty: 30 RF: 2 lorazepam 0.5 mg tablet See Rx Instructions PO DAILY PRN (Reason: anxiety) Qty: 30 RF: 0
[2020-03-29 15:40] LABS: COVID19 -Nasal RAPID Negative (Negative)
[2020-03-29 15:43] LABS: Free T4, Direct Thyroxine 2.24 ng/dL (0.78-2.19)
[2020-03-29 15:52] LABS: Amorphous Sediment Urine 3+; Bacteria Urine None Seen; Culture Indicated Urine Cult Not Indicated; RBC Urine None Seen (0-5/HPF); Squamous Epithelial Cell Urine 5-10 /HPF (0-5/HPF); WBC Urine 1-5/HPF (0-5/HPF)
[2020-03-29 15:54] LABS: Urine Comments TNP-NO SPIN
[2020-03-29] MEDS: NICOTINE 21 MG PATCH TOP (16:13)
--- NOTE | 2020-03-29 16:38 | CM.SWNOTE ---
HIDE INSPECTOR Assessment HIDE INSPECTOR - Certified Maintenance Welder Assessment HIDE INSPECTOR - Certified Maintenance Welder Assessment Start: 03/29/20 16:06 Freq: Status: Active Protocol: Document 03/29/20 16:06 MEHNAZ (Rec: 03/29/20 16:31 MEHNAZ [id number]) HIDE INSPECTOR/Certified Maintenance Welder Assessment Time Spent with Patient Start date 03/29/20 Visit Start Time 15:00 End date 03/29/20 Visit End Time 16:00 Total time Care Management spent on 60 patient visit-in minutes Mental Health Screening Include Onset, Duration, Intensity Presenting Problem Patient presents to ED via father due to thought of suicide. Patient reports increasing symptoms of depression over the past two months, and a significant escalation in symptoms during past 2-3 weeks. Patient reports she is crying every day, anhedonia, feeling exhausted, anxiety, and has been experiencing continuous thoughts of I want to . 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 Patient has 3 children and is attending school. Patient reports that she reported thoughts of SI to her previous evening and that her contacted police, who came to patient's house at midnight to check on patient safety. Patient came into ED voluntarily via her father later in day. Patient Strengths Patient is open and insightful about her mental health, and is motivated to heal for her children. Current Behavioral Health Provider(s) Patient has a PCP- Dr. Mathew Include Facility, Provider, Ph. # Psych. Hx Mental Health and Chemical Patient reports hx of PTSD, Dependency anxiety, depression, and reports that she has been on antidepressants for nearly 8 years. Patient endorses use of CBD/ THC. No other ETOH or substance use concerns reported. Family Hx of Behavioral Abuse Patient reports My mother was a bad mom. No further details provided. Psychiatric Hospitalizations (date(s)/ None reported. location) Psychosocial information & Support Patient is a 29 y/o female who Systems lives with her three children . Patient reports that her has been home 3 of the last 12 months due to deployment and she is experiencing exhaustion due to caring for 3 children with little help. Patient reports that her father lives far away and is supportive, and reports a supportive stepmother. Patient also feels supported by her community through the . School/Work Patient is currently attending nursing school. Patient reports she really enjoys school and does not want to discontinue pursuing her education. Legal Concerns Legal Matters - Outstanding Issues None reported. Mental Status Orientation (Person/Place/Time) Oriented x3 Stated Mood really depressed Affect (Congruent with Mood?) dysthymic, stable, congruent with mood. Thought Content - Specify/Describe Patient reports consistent, Obsessions, Delusions, Hallucinations escalating thoughts of wanting to . Patient denies hallucinations or delusions. Thought Processes (Wxoehyi-Rughchdo-Nkhv Logical-goal directed Hmobdgxz-Rgvlghjs-Kqathoixbg- Auqjrnfvoqlggp-Xkbucvb-Jmlvysmgkavq- Thought Blocking) Speech (Vfnrxy-Egyx-Yktncda-Rapid-Soft- Slightly rapid at start of Loud-Pressured) assessment, returning to normal jennifer during assessment Motor (Xmwttt-Caiwvzevb-Jlpo-Other) Normal Insight (Igsu-Ypzs-Zzjj/Limited) Good Judgement (Gsde-Jhrm-Phea/Limited) Good Impulse Control (Adequate-Impaired) Adequate during assessment Memory (Nihtnwxvl-Dpowhx-Fvubes, Intact for interview, not Impaired-Intact) formally assessed Concentration (Intact-Impaired) Intact Attention (Intact-Impaired) Intact Behavior (Appropriate-Inappropriate) Appropriate Risk Assessment Suicidal Ideation (Plan) Yes Homicidal Ideation (Plan) No Comment Patient reports escalating feelings and thoughts of and suicide. Patient reports she does not want to be alive anymore, but does not want her children to find her after completing suicide. While patient denies a having a complete plan, patient does state that she has considered suicide by overdose and does have enough antidepressants in home to complete. Patient denies any guns/weapons for suicide in home. Intervention Intervention HIDE INSPECTOR meets with patient. HIDE INSPECTOR and patient discuss current experience of depression and suicidal thoughts. Patient reports she is experiencing an increase in depressive symptoms and suicidal ideation and does not feel that she is in control of her suicidal thoughts. Patient reports she came to ED as she does not feel that she will be able to keep herself safe with suicidal thoughts. HIDE INSPECTOR and patient discuss options, goals. Patient reports she is wanting to address her SI and is willing to do whatever I have to in order to find safety and stability. Patient and HIDE INSPECTOR discuss inpatient, and patient indicates she is thinks this would be the right intervention for her. This HIDE INSPECTOR is in agreement that patient is appropriate for voluntary inpatient psychiatric hospitalization. HIDE INSPECTOR updates ED provider, who indicates agreement. Plan RA Plan HIDE INSPECTOR will seek inpatient bed for patient. PETER Vences
--- NOTE | 2020-03-29 18:24 | CM.SWNOTE ---
FLEXIBLE MACHINING SYSTEM MACHINIST note Following assessment, FLEXIBLE MACHINING SYSTEM MACHINIST calls [facility] seeking inpatient psychiatric bed for patient. No open beds at [facility]. FLEXIBLE MACHINING SYSTEM MACHINIST then calls [facility] who informs FLEXIBLE MACHINING SYSTEM MACHINIST that they do have open beds, but are uncertain if patient would be accepted for transfer tonight or tomorrow. FLEXIBLE MACHINING SYSTEM MACHINIST discusses this with patient who states preference for transfer tonight but agreeable to pursing placement at . An hour after sending referral, FLEXIBLE MACHINING SYSTEM MACHINIST contacts [facility] for update. [facility] staff report they have not reviewed patient's clinicals and state that it is unlikely that they will review clinicals before 9pm tonight. [facility] staff unable to confirm if there is still a potential opening for patient. FLEXIBLE MACHINING SYSTEM MACHINIST calls [facility] to inquire about open bed and staff at [facility] inform FLEXIBLE MACHINING SYSTEM MACHINIST that there are open beds at [facility]. FLEXIBLE MACHINING SYSTEM MACHINIST discusses this with patient who is agreeable to pursue [facility] for placement, and states she is agreeable to stay in ED overnight if needed for placement. FLEXIBLE MACHINING SYSTEM MACHINIST faxes clinicals to [facility]. Pl: FLEXIBLE MACHINING SYSTEM MACHINIST will await follow up and acceptance from [facility] or [facility]. Following anticipated acceptance at one of these facilities, FLEXIBLE MACHINING SYSTEM MACHINIST will contact other facility to cancel referral. PETER Vences
[2020-03-29 19:45] VITALS: BP 119/63; PULSE 76; RESP 16; TEMP 36.8; O2SAT 97
--- NOTE | 2020-03-29 20:44 | CM.SWNOTE ---
ARTIST SUSPECT note ARTIST SUSPECT recieves call from Naila at [facility]. Naila informs ARTIST SUSPECT that patient has been accepted for placement at [facility]. Details of acceptance are placed in comments section on EMR and detailed below: Accepted to [facility]. Accepting Provider: Dr. Castro. Ccirw-vz-Xirdu: [phone]. Intake Contact Naila. 1549 03/30 Check in time. ARTIST SUSPECT informs RN, FOAMITE MIXER, and ED Provider of acceptance and timeline. FOAMITE MIXER to arrange transfer. ARTIST SUSPECT informs patient of acceptance. Patient remains agreeable to plan to continue inpatient psychiatric treatment at [facility]. Plan: Patient will transfer to [facility] to receive inpatient behavioral health treatment. PETER Vences
== END 2020-03-29 22:51 ==
PROVIDERS: Nurse Practitioner Family; Emergency Provider Emergency Medicine; PCP Family Medicine
DX: R45.851 Suicidal ideations (principal); F32.9 Major depressive disorder, single episode, unspecified; E03.9 Hypothyroidism, unspecified; F41.9 Anxiety disorder, unspecified; Z20.822 Contact with and (suspected) exposure to COVID-19
CPT/HCPCS: 36415; 80053; 80305; 80320; 80329; 81003; 81015; 81025; 84439; 84443; 85025; 87635; 99284; C9803; G0480

== ENCOUNTER → 2020-04-07 14:08 | Outpatient (CLI) | payer OTHER, SELFPAY ==
[2020-04-07 14:43] LABS: Appearance Urine UA SL CLOUDY; Bilirubin Urine UA 1+ (NEGATIVE); Color Urine UA YELLOW; Glucose Urine UA NEGATIVE (Negative); Ketones Urine UA TRACE (NEGATIVE); Leukocyte Esterase Urine UA 1+ (NEGATIVE); Nitrite Urine UA POSITIVE (Negative); Occult Blood Urine UA 3+ (Negative); Protein Urine UA 1+ (Negative); Specific Gravity Urine UA 1.025 (1.000-1.035); Urobilinogen Urine UA 0.2 E.U./dL (0.2)
[2020-04-07 14:52] LABS: Bacteria Urine Many (>30); Culture Indicated Urine Specimen Cultured; Mucus Urine 2+ (Negative); RBC Urine 5-10/HPF (0-5/HPF); WBC Urine 5-10/HPF (0-5/HPF)
[2020-04-07 14:56] LABS: Add Manual Diff / Slide Review NO; Basophils Absolute Auto 100 /uL (0-100); Basophils Percent Auto 0.7 % (0-2); Eosinophils Absolute Auto 100 /uL (0-450); Eosinophils Percent Auto 1.8 % (2-4); Hematocrit 36.9 % (36-46); Hemoglobin 12.6 g/dL (12.0-16.0); Lymphocytes Absolute Auto 1700 /uL (1100-4500); Lymphocytes Percent Auto 22.8 % (25-40); Mean Corpuscular HGB Conc 34.1 % (30-36); Mean Corpuscular Hemoglobin 28.8 PG (26-34); Mean Corpuscular Volume 84.3 fL (80-100); Monocytes Absolute Auto 500 /uL (0-900); Neutrophils Absolute Auto 5200 /uL (1500-7000); Neutrophils Percent Auto 68.7 % (50-75); Platelet Count 264 X10^3/uL (150-400); Red Blood Cell Count 4.38 X10^6/uL (4.0-5.2); Red Cell Distribution Width 12.5 % (11.6-14.8); White Blood Cell Count 7.6 X10^3/uL (4.5-11.0)
[2020-04-07 15:44] LABS: Ictotest Urine Positive (Negative)
[2020-04-07 15:49] LABS: Free T3, Triiodothyronine Free 4.17 pg/mL (2.77-5.27); Free T4, Direct Thyroxine 1.88 ng/dL (0.78-2.19)
[2020-04-07 16:11] LABS: Thyroid Stimulating Hormone < 0.015 uIU/mL (0.47-4.68)
== END ==
PROVIDERS: PCP Family Medicine; Referring Provider Family Medicine; Visit Provider Family Medicine
DX: E89.0 Postprocedural hypothyroidism (principal); D64.9 Anemia, unspecified; R30.0 Dysuria
CPT/HCPCS: 36415; 81001; 84439; 84443; 84481; 85025; 87077; 87086; 87186

== ENCOUNTER → 2020-04-21 12:11 | Outpatient (CLI) | payer OTHER, SELFPAY ==
[2020-04-21 12:40] LABS: Appearance Urine UA CLOUDY; Bilirubin Urine UA NEGATIVE (NEGATIVE); Color Urine UA YELLOW; Glucose Urine UA NEGATIVE (Negative); Ketones Urine UA NEGATIVE (NEGATIVE); Leukocyte Esterase Urine UA 3+ (NEGATIVE); Nitrite Urine UA NEGATIVE (Negative); Occult Blood Urine UA 3+ (Negative); Protein Urine UA 1+ (Negative); Specific Gravity Urine UA 1.015 (1.000-1.035); Urobilinogen Urine UA 0.2 E.U./dL (0.2)
[2020-04-21 12:46] LABS: pH Urine UA 5.5 (4.5-8.0)
[2020-04-21 12:47] LABS: Amorphous Sediment Urine 1+; Bacteria Urine Few (2-10); Culture Indicated Urine Specimen Cultured; RBC Urine 1-5/HPF (0-5/HPF); Squamous Epithelial Cell Urine 0-1 /HPF (0-5/HPF); WBC Urine 30-100/HPF (0-5/HPF)
== END ==
PROVIDERS: PCP Family Medicine; Referring Provider Family Medicine; Visit Provider Family Medicine
DX: R30.0 Dysuria (principal)
CPT/HCPCS: 81001; 87077; 87086; 87186

== ENCOUNTER → 2020-06-13 16:21 | Outpatient (CLI) | payer OTHER, SELFPAY ==
[2020-06-13 18:31] LABS: Free T3, Triiodothyronine Free 2.47 pg/mL (2.77-5.27); Free T4, Direct Thyroxine 1.21 ng/dL (0.78-2.19)
[2020-06-13 18:44] LABS: Thyroid Stimulating Hormone 0.036 uIU/mL (0.47-4.68)
== END ==
PROVIDERS: PCP Family Medicine; Referring Provider Family Medicine; Visit Provider Family Medicine
DX: E89.0 Postprocedural hypothyroidism (principal)
CPT/HCPCS: 36415; 84439; 84443; 84481

== ENCOUNTER → 2020-09-08 16:08 | Outpatient (CLI) | payer OTHER, SELFPAY ==
--- NOTE | 2020-09-08 16:11 | DI.RAD.S_ITS ---
PROCEDURE: XR ELBOW LT MIN 3V INDICATIONS: left elbow pain/swelling post fall TECHNIQUE: 3 views of the elbow were acquired. COMPARISON: None. FINDINGS: Bones: No fractures or dislocations. No suspicious bony lesions. Soft tissues: No elbow joint effusion. No suspicious soft tissue calcifications. IMPRESSION: Left elbow without acute fracture or dislocation. If there is persistent clinical concern for occult fracture given adequate mechanism of injury, consider repeat imaging in 10-14 days. Dictated by: Rolo Torres M.D. on 09/08/2020 at 16:56 Approved by: Rolo Torres M.D. on 09/08/2020 at 16:57
== END ==
PROVIDERS: PCP Family Medicine; Referring Provider Family Medicine; Visit Provider Family Medicine
DX: M25.522 Pain in left elbow (principal); M25.422 Effusion, left elbow
CPT/HCPCS: 73080

== ENCOUNTER → 2020-10-09 14:20 | Outpatient (CLI) | payer OTHER, SELFPAY | PROVIDERS: PCP Family Medicine; Visit Provider Family Medicine | DX: N39.0 Urinary tract infection, site not specified (principal) | CPT/HCPCS: 87077; 87086; 87186 ==

== ENCOUNTER → 2020-11-20 08:08 | Outpatient (CLI) | payer OTHER, SELFPAY ==
--- NOTE | 2020-11-20 08:10 | DI.RAD.S_ITS ---
PROCEDURE: XR ELBOW LT MIN 3V INDICATIONS: left elbow pain x3 months TECHNIQUE: 3 views of the elbow were acquired. COMPARISON: [facility], CR, XR ELBOW LT MIN 3V, 09/08/2020, 16:13. FINDINGS: Bones: No fractures or dislocations. No suspicious bony lesions. Soft tissues: No elbow joint effusion. No suspicious soft tissue calcifications. IMPRESSION: No definite radiographic abnormality. If pain persists with conservative management, consider cross sectional imaging such as CT or MRI for further assessment. Dictated by: Austin Solis [facility] Interpreted: Maurice Sr MD on 11/20/2020 at 8:52 Transcribed by: JACK on 11/20/2020 at 8:52 Approved by: Maurice Sr M.D. on 11/20/2020 at 11:56
--- NOTE | 2020-11-20 08:10 | DI.US.S_ITS ---
PROCEDURE: US PELVIC COMPLETE INDICATIONS: PAIN TECHNIQUE: Real-time scanning was performed of the pelvic organs, with image documentation. Additional endovaginal scanning was necessary due to incomplete visualization of the adnexal and endometrial structures by transabdominal scanning. COMPARISON: None. FINDINGS: Uterus: Uterus is normal in size at 4.4 x 5.9 x 7.3 cm. The endometrium measures 7 mm in combined thickness. Ovaries: The right ovary measures 2.0 x 2.5 x 3.7 cm. The left ovary measures 2.3 x 2.4 x 4.2 cm. Simple cyst in the left ovary measuring 1.7 cm. Ovaries otherwise normal. Other: Trace free fluid in pelvis within normal limits. IMPRESSION: Normal exam. Dictated by: Devon Gimenez M.D. on 11/20/2020 at 9:01 Approved by: Devon Gimenez M.D. on 11/20/2020 at 9:09
== END ==
PROVIDERS: PCP Family Medicine; Referring Provider Family Medicine; Visit Provider Family Medicine
DX: R10.2 Pelvic and perineal pain (principal); M25.522 Pain in left elbow
CPT/HCPCS: 73080; 76830; 76856

== ENCOUNTER 2020-11-22 13:54 | Emergency (ER) | payer OTHER, SELFPAY ==
[2020-11-22 14:02] VITALS: BP 136/86; PULSE 77; RESP 20; TEMP 36.8; O2SAT 99; BMI 30.5
[2020-11-22 14:57] LABS: Add Manual Diff / Slide Review NO; Basophils Absolute Auto 100 /uL (0-100); Basophils Percent Auto 0.8 % (0-2); Eosinophils Absolute Auto 200 /uL (0-450); Eosinophils Percent Auto 2.1 % (2-4); Hematocrit 36.9 % (36-46); Hemoglobin 12.5 g/dL (12.0-16.0); Lymphocytes Absolute Auto 1800 /uL (1100-4500); Lymphocytes Percent Auto 24.4 % (25-40); Mean Corpuscular Volume 85.2 fL (80-100); Monocytes Absolute Auto 400 /uL (0-900); Monocytes Percent Auto 5.7 % (3-14); Neutrophils Absolute Auto 5100 /uL (1500-7000); Platelet Count 297 X10^3/uL (150-400); Red Blood Cell Count 4.33 X10^6/uL (4.0-5.2); Red Cell Distribution Width 13.2 % (11.6-14.8); White Blood Cell Count 7.6 X10^3/uL (4.5-11.0)
[2020-11-22 15:07] LABS: Alanine Aminotransferase 15 IU/L (<35); Albumin Globulin Ratio 1.6 (1.0-2.8); Alkaline Phosphatase 62 U/L (38-126); Aspartate Aminotransferase 22 IU/L (14-36); BUN Creatinine Ratio 15.7 (6-22); Bilirubin Total 0.2 mg/dL (0.2-1.3); Blood Urea Nitrogen 11 mg/dL (7-17); Calcium 9.7 mg/dL (8.4-10.2); Carbon Dioxide 32 mmol/L (22-32); Chloride 100 mmol/L (98-107); Estimated Glomerular Filt Rate > 60.0 mL/min (>60); Globulin 3.2 g/dL (1.7-4.1); Glucose 81 mg/dL (70-100); HEMOLYSIS < 15 (0-50); Lipase 138 U/L (23-300); Potassium 3.8 mmol/L (3.4-5.1); Sodium 140 mmol/L (137-145); Total Protein 8.2 g/dL (6.3-8.2)
--- NOTE | 2020-11-22 15:27 | ED.ABDPAIN ---
HPI - Abdominal Pain General Chief Complaint: Abdominal Pain Stated Complaint: x6 days low back/low abdomina pain Time Seen by Provider: 11/22/20 14:53 Source: patient Mode of arrival: Ambulatory Limitations: no limitations History of Present Illness HPI narrative: Patient is a 30 year old female with history of hypothyroid, presenting today with lower abdominal pain and back pain ongoing for the past 6 days. She has been taking some ibuprofen it does not seem to help much. She feels like her vagina is full. She denies any abnormal vaginal discharge. She is not having excessive bleeding. She denies any flank pain or radiation to her abdomen. His feels like something isn't quite right. She has not had any fever or chills nausea or vomiting. Pain is relatively constant all is all across her lower abdomen and low back. No injury. She feels like it takes longer for her to have a bowel movement but she has a sensation and she is able to go. She denies any injury. Patient also complaining that she felt her cervix today and feels there or bumps on it. She has had abnormal Pap smears in the past she is quite concerned she may have cancer. Related Data Previous Rx's Medication Instructions Recorded hydroxyzine HCl 25 mg tablet 25 mg PO TID PRN #30 tab 04/08/20 multivitamin (Multiple Vitamins) 1 tab PO DAILY #90 tab 07/28/20 venlafaxine 150 mg See Rx Instructions PO DAILY #90 08/26/20 capsule,extended release 24 hr cap venlafaxine 75 mg capsule,extended See Rx Instructions PO DAILY #90 08/26/20 release 24 hr cap lamotrigine 200 mg tablet 200 mg PO DAILY #90 tab 09/17/20 levothyroxine 125 mcg tablet See Rx Instructions .ROUTE 09/30/20 .COMPLEX #30 tab cephalexin 500 mg capsule 500 mg PO BID #10 cap 10/10/20 Allergies Allergy/AdvReac Type Severity Reaction Status Date / Time No Known Drug Allergies Allergy Verified 03/29/20 14:41 Review of Systems Review of Systems Narrative: GENERAL: Denies chills, fatigue, malaise, fever, sweats, travel HEENT: Denies sinus pain, ear pain, sore throat, difficulty swallowing, neck pain RESPIRATORY: Denies dyspnea, cough, wheezing, hemoptysis, sputum. CARDIOVASCULAR: Denies chest pain, palpitations, orthopnea, edema GASTROINTESTINAL: See HPI : Denies dysuria, frequency, incontinence, hematuria, urinary retention, flank pain. MUSCULOSKELETAL: Denies weakness, joint pain, or bony pain SKIN: No rash, no erythema, no pruritus NEUROLOGIC: Denies weakness, dizziness, headache, numbness, change in speech, confusion PSYCHIATRIC: No concerning psychosocial issues. 12 point review of systems is negative except for those stated above and HPI Patient History Medical History Adult acne Anxiety Depression Eczema Generalized anxiety disorder with panic attacks Heavy menstrual period Hypothyroidism (~2017) Perioral dermatitis Surgical History Anesthesia Previous section (~05/14/15) S/P thyroidectomy (~07/21/17) Status post laparoscopic cholecystectomy Family History Mother Mental health problem Brother Cerebral palsy Brother Mental health problem Sister Mental health problem Grandfather Cancer Grandmother Skin cancer Diabetes mellitus Grandfather Cancer Hyperlipidemia Alcoholic Grandmother Diabetes mellitus Social History marital status: number of children: 3 household members: family lives independently: Yes education level: college occupational status: other Smoking Status: Current every day smoker alcohol intake: current substance use type: does not use Smoking Status: Current every day smoker tobacco type: vaping alcohol intake frequency: holidays/special occasions only Substance Use Type: marijuana Exam Initial Vital Signs Initial Vital Signs: Vital Signs Temperature 98.2 F 11/22/20 14:02 Pulse Rate 77 11/22/20 14:02 Respiratory Rate 20 11/22/20 14:02 Blood Pressure 136/86 11/22/20 14:02 Pulse Oximetry 99 11/22/20 14:02 GENERAL: Alert 30-year-old femaleand in no acute distress. HEENT: Head atraumatic,EOMI, pupils reactive, face symmetric, moist mucous membranes CARDIOVASCULAR: Regular rate and rhythm without murmurs, rubs or gallops. RESPIRATORY: Breath sounds equal bilaterally, no wheezes rales or rhonchi. ABDOMEN: Soft, mild lower abdominal pain no guarding or rebound : No CVA tenderness EXTREMITIES: Normal range of motion, no clubbing or edema. Neurovascularly intact NEUROLOGICAL: Alert and oriented x4.Normal gait and speech. SKIN: Warm, dry, no laceration, no petechiae, no rashes or lesions. Course Orders Ordered: ED Orders 11/22/20 14:41 Complete Blood Count AUTO DIFF Stat Comprehensive Metabolic Panel Stat Lipase Stat 11/22/20 15:35 CT abdomen pelvis w con Stat Discontinued Medications Ketorolac Tromethamine (Ketorolac 30 Mg/Ml Vial) 15 mg IV NOW ONE Stop: 11/22/20 15:36 Last Admin: 11/22/20 15:48 Dose: 15 mg Documented by: LESLIE Vital Signs Vital signs: Vital Signs - 8 hr 11/22/20 14:02 11/22/20 17:20 Temperature 98.2 F 98.7 F Pulse Rate 77 77 Respiratory Rate 20 16 Blood Pressure 136/86 132/79 Pulse Oximetry 99 99 MDM - Abdominal Pain Lab Data Result diagrams: 11/22/20 14:41 11/22/20 14:41 Labs: Lab Results 11/22/20 11/22/20 Range/Units 14:41 14:41 WBC 7.6 (4.5-11.0) X10^3/uL RBC 4.33 (4.0-5.2) X10^6/uL Hgb 12.5 (12.0-16.0) g/dL Hct 36.9 (36-46) % MCV 85.2 (80-100) fL MCH 29.0 (26-34) PG MCHC 34.0 (30-36) % RDW 13.2 (11.6-14.8) % Plt Count 297 (150-400) X10^3/uL Neut % (Auto) 67.0 (50-75) % Lymph % (Auto) 24.4 L (25-40) % [place] % (Auto) 5.7 (3-14) % Eos % (Auto) 2.1 (2-4) % Baso % (Auto) 0.8 (0-2) % Neut # (Auto) 5100 (1843-0769) /uL Lymph # (Auto) 1800 (4011-4592) /uL [place] # (Auto) 400 (0-900) /uL Eos # (Auto) 200 (0-450) /uL Baso # (Auto) 100 (0-100) /uL Sodium 140 (137-145) mmol/L Potassium 3.8 (3.4-5.1) mmol/L Chloride 100 (98-107) mmol/L Carbon Dioxide 32 (22-32) mmol/L BUN 11 (7-17) mg/dL Creatinine 0.70 (0.52-1.04) mg/dL Estimated GFR > 60.0 (>60) mL/min BUN/Creatinine Ratio 15.7 (6-22) Glucose 81 (70-100) mg/dL Calcium 9.7 (8.4-10.2) mg/dL Total Bilirubin 0.2 (0.2-1.3) mg/dL AST 22 (14-36) IU/L ALT 15 (<35) IU/L Alkaline Phosphatase 62 (38-126) U/L Total Protein 8.2 (6.3-8.2) g/dL Albumin 5.0 (3.5-5.0) g/dL Globulin 3.2 (1.7-4.1) g/dL Albumin/Globulin Ratio 1.6 (1.0-2.8) Lipase 138 (23-300) U/L Point of care testing: Point of Care Testing Test Results Negative Urine Dip Bedside Urine Glucose Negative Bedside Urine Bilirubin - Negative Bedside Urine Ketone - Negative Urine Specific [place] 1.020 Bedside Urine Occult Blood - Negative Bedside Urine pH 7.0 Bedside Urine Protein - Negative Bedside Urine Urobilinogen - Negative Bedside Urine Nitrite - Negative Bedside Urine Leukocytes - Negative Esterase Imaging Data CT scan - abdomen/pelvis: Radiologist's Impression: PROCEDURE:? CT ABDOMEN PELVIS W CON ? INDICATIONS:? lower ab and back pain ? TECHNIQUE:? After the administration of oral and IV contrast, axial sections were acquired from the lung bases to the pubic symphysis.? Coronal and sagittal reformats were performed.? For radiation dose reduction, the following was used:? automated exposure control, adjustment of mA and/or kV according to patient size. ? COMPARISON:? None. ? FINDINGS:? Image quality:? Excellent.? ? Lung bases:? Unremarkable.? ? Heart:? No significant findings. ? ? ABDOMEN: Liver:? Unremarkable.? ? Gallbladder:? Cholecystectomy? ? Biliary ducts:? Unremarkable.? ? Pancreas:? Unremarkable.? ? Spleen:? Unremarkable.? ? Adrenal Glands:? Unremarkable.? ? Kidneys and Ureters:? Unremarkable.? ? ? Stomach and Bowel:? Stomach, small bowel loops, and colon are unremarkable.? Peritoneum:? No abnormal intraperitoneal fluid.? No free air.? Small amount of free fluid in the pelvis, probably physiologic. ? Ventral Wall: ? No hernia.? Abdominal Nodes:? No retroperitoneal or mesenteric adenopathy by size criteria.? Vessels:? Aorta and inferior vena cava are normal in size.? ? PELVIS: Pelvic Organs:? Unremarkable.? ? Bladder:? Unremarkable.? ? Pelvic Nodes: No enlarged lymph nodes.? Miscellaneous: No inguinal hernias are seen. ? ? ? Bones:? Unremarkable.? IMPRESSION:? ? 1. Small amount of free fluid in the pelvis and cystic change in the left ovary could reflect recently ruptured cyst. 2. Moderate fecal debris in the right colon.? Normal appendix. 3. Cholecystectomy? ? MDM Narrative Medical decision making narrative: Patient is here for abdominal pain and pelvic pain back pain ongoing for the last few days. It looks as though she had an outpatient pelvic ultrasound yesterday which did show a small simple ovarian cyst on the left of 1.7 cm with a trace amount of free fluid. Blood work today is overall reassuring. CT again shows ovarian cyst and mild constipation. I have discussed findings with her she is quite relieved to be found to have constipation. 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 At this time I do not feel that a pelvic exam necessary in the emergency department. However she does need outpatient follow-up. Discharge Plan Departure Patient Disposition: Home Clinical Impression: Ovarian cyst, Constipation Instructions: Constipation, DI for Ovarian Cyst, DI for Constipation Activity Restrictions/Additional Instructions: *You have been diagnosed with ovarian cyst and constipation *What to do: You were found on your CT scan today in her ultrasound yesterday that you have a very small simple left ovarian cyst which may causing some of your abdominal discomfort. He has also found that have some mild constipation. At this time I recommend that you increase fluids, increase activity and eat a high-fiber diet. If you are still having trouble with constipation you may try some [id number] medication as directed. you may also need a repeat pelvic ultrasound in about 6 weeks with a primary care provider *Continue to take medications as directed Motrin 800 mg every 8 hours if needed for [id number] pain *Follow up with your primary care provider in 2-3 days *Return to ER if you should have increasing abdominal pain fever, nausea vomiting or any new, worsening or concerning symptoms Prescriptions: No Action multivitamin [Multiple Vitamins] Tablet 1 tab PO DAILY Qty: 90 RF: 0 hydroxyzine HCl 25 mg tablet 25 mg PO TID PRN (Reason: anxiety) Qty: 30 RF: 1 venlafaxine 150 mg capsule,extended release 24hr See Rx Instructions PO DAILY Qty: 90 RF: 1 venlafaxine 75 mg capsule,extended release 24hr See Rx Instructions PO DAILY Qty: 90 RF: 1 lamotrigine 200 mg tablet 200 mg PO DAILY Qty: 90 RF: 1 levothyroxine 125 mcg tablet See Rx Instructions .ROUTE .COMPLEX Qty: 30 RF: 3 cephalexin 500 mg capsule 500 mg PO BID Qty: 10 RF: 0 Referrals: [facility] [Outside] Tania Mathew DO [Primary Care Provider] -
--- NOTE | 2020-11-22 15:35 | DI.CT.S_ITS ---
PROCEDURE: CT ABDOMEN PELVIS W CON INDICATIONS: lower ab and back pain TECHNIQUE: After the administration of oral and IV contrast, axial sections were acquired from the lung bases to the pubic symphysis. Coronal and sagittal reformats were performed. For radiation dose reduction, the following was used: automated exposure control, adjustment of mA and/or kV according to patient size. COMPARISON: None. FINDINGS: Image quality: Excellent. Lung bases: Unremarkable. Heart: No significant findings. ABDOMEN: Liver: Unremarkable. Gallbladder: Cholecystectomy Biliary ducts: Unremarkable. Pancreas: Unremarkable. Spleen: Unremarkable. Adrenal Glands: Unremarkable. Kidneys and Ureters: Unremarkable. Stomach and Bowel: Stomach, small bowel loops, and colon are unremarkable. Peritoneum: No abnormal intraperitoneal fluid. No free air. Small amount of free fluid in the pelvis, probably physiologic. Ventral Wall: No hernia. Abdominal Nodes: No retroperitoneal or mesenteric adenopathy by size criteria. Vessels: Aorta and inferior vena cava are normal in size. PELVIS: Pelvic Organs: Unremarkable. Bladder: Unremarkable. Pelvic Nodes: No enlarged lymph nodes. Miscellaneous: No inguinal hernias are seen. Bones: Unremarkable. IMPRESSION: 1. Small amount of free fluid in the pelvis and cystic change in the left ovary could reflect recently ruptured cyst. 2. Moderate fecal debris in the right colon. Normal appendix. 3. Cholecystectomy Approved by: Abdullahi Campbell M.D. on 11/22/2020 at 15:47
[2020-11-22] MEDS: KETOROLAC 30 MG/ML VIAL 15 MG IV (15:48)
[2020-11-22 17:20] VITALS: BP 132/79; PULSE 77; RESP 16; TEMP 37.1; O2SAT 99
== END 2020-11-22 17:39 | disposition home or self-care (01) ==
PROVIDERS: Emergency Provider Emergency Medicine; PCP Family Medicine
DX: N83.292 Other ovarian cyst, left side (principal); K59.00 Constipation, unspecified; M54.50 Low back pain, unspecified
CPT/HCPCS: 36415; 74177; 80053; 81003; 81025; 83690; 85025; 96374; 99284; J1885; Q9967

== ENCOUNTER → 2020-12-31 11:00 | Outpatient (CLI) | payer OTHER, SELFPAY ==
[2020-12-31 13:30] LABS: COVID19 -Nasal RAPID Negative (Negative)
== END ==
PROVIDERS: PCP Family Medicine; Visit Provider Physician Assistant
DX: Z20.822 Contact with and (suspected) exposure to COVID-19 (principal); R06.02 Shortness of breath; R52 Pain, unspecified; R53.83 Other fatigue; R68.83 Chills (without fever)
CPT/HCPCS: 87635

== ENCOUNTER → 2021-02-01 14:30 | Outpatient (CLI) | payer OTHER, SELFPAY ==
[2021-02-01 15:09] LABS: COVID19 -Nasal RAPID POSITIVE (Negative)
== END ==
PROVIDERS: PCP Family Medicine; Visit Provider Nurse Practitioner Family
DX: R51.9 Headache, unspecified (principal); R09.81 Nasal congestion
CPT/HCPCS: 87635

== ENCOUNTER 2022-04-03 09:56 | Emergency (ER) | payer OTHER, SELFPAY ==
[2022-04-03 10:11] VITALS: BP 128/84; PULSE 75; RESP 18; TEMP 36.3; O2SAT 99
--- NOTE | 2022-04-03 10:40 | PC.NURSE ---
pt states she has had lower back pain for 3 months constantly. she spoke with her PCP about this and he told her she was constipated due to her change in bowel pattern and sometimes feeling like she needs to go but not a lot comes out. pt states she doesnt think this is the problem. she has family hx of endometriosis and is worried she might have it too. pt states no chance of , she has no contraception method but her has vasectomy.
[2022-04-03 10:47] LABS: Bacteria Urine Many (>30); RBC Urine >100/HPF (0-5/HPF); Squamous Epithelial Cell Urine 5-10 /HPF (0-5/HPF); WBC Urine 1-5/HPF (0-5/HPF)
[2022-04-03 10:48] LABS: Culture Indicated Urine Specimen Cultured
--- NOTE | 2022-04-03 12:45 | ED_ITS ---
HPI - Abdominal Pain <DAYRON Mcpherson - Last Filed: 04/03/22 13:20> General Chief Complaint: Abdominal Pain Stated Complaint: started period, in so much pain Time Seen by Provider: 04/03/22 11:58 Source: patient and family Mode of arrival: Family Vehicle History of Present Illness HPI narrative: 31-year-old female, daily smoker, presents to the emergency department with complaints of worsening uterine cramping since the beginning of her menstrual period that started 6 days ago. Patient also endorses that her vaginal bleeding is heavier than usual and similar to what her 1st day of menses typically looks like. Familial history of endometriosis. Patient states that she slipped on the ice 3 months ago and landed on her coccyx and has had low back pain that radiates to the front ever since. Patient was seen by her family doctor who believes some of the symptoms are related to her infrequent bowel movements. Patient has been taking daily stool softeners, on and off, but is still having the discomfort. Related Data Previous Rx's Medication Instructions Recorded hydroxyzine HCl 25 mg tablet 25 mg PO TID PRN anxiety #30 tabs 04/08/20 multivitamin (Multiple Vitamins 1 tab PO DAILY #90 tabs 07/28/20 tablet) lamotrigine 200 mg tablet 200 mg PO DAILY #90 tabs 09/17/20 levothyroxine 125 mcg tablet See Rx Instructions .Route 09/30/20 .COMPLEX #30 tabs cephalexin 500 mg capsule 500 mg PO BID #10 caps 10/10/20 venlafaxine 225 mg tablet,extended 225 mg PO DAILY #90 tabs 10/27/21 release 24 hr sulfamethoxazole 400 1 tab PO BID 3 days #6 tabs 04/03/22 mg-trimethoprim 80 mg tablet (Bactrim) Allergies Allergy/AdvReac Type Severity Reaction Status Date / Time acetaminophen [From Vicodin] AdvReac Mild ITCHING Verified 04/03/22 10:23 hydrocodone [From Vicodin] AdvReac Mild ITCHING Verified 04/03/22 10:23 Review of Systems <DAYRON Mcpherson - Last Filed: 04/03/22 13:20> Review of Systems Narrative: Narrative: See HPI. GENERAL: Denies chills, fatigue, fever, sweats. HEENT: Denies sinus pain, ear pain, sore throat, difficulty swallowing, dizziness. RESPIRATORY: Denies dyspnea, cough, wheezing, sputum. CARDIOVASCULAR: Denies chest pain, palpitations, edema. GASTROINTESTINAL: Denies nausea, vomiting, diarrhea, constipation. Endorses abdominal cramping. : Denies dysuria, frequency, incontinence, hematuria, urinary retention, flank pain. Endorses heavy menstrual bleeding. MSK: Denies weakness, joint pain. Endorses lower midline back pain superior to coccyx. SKIN: Denies rash, skin lesions, or pruritis. NEUROLOGIC: Denies weakness, dizziness, headache, numbness, confusion. PSYCHIATRIC: No concerning psychosocial issues. Patient History <DAYRON Mcpherson - Last Filed: 04/03/22 13:20> Medical History Adult acne Anxiety Depression Eczema Generalized anxiety disorder with panic attacks Heavy menstrual period Hypothyroidism (~2017) Perioral dermatitis Surgical History Anesthesia Previous section (~05/14/15) S/P thyroidectomy (~07/21/17) Status post laparoscopic cholecystectomy Family History Mother Mental health problem Brother Cerebral palsy Brother Mental health problem Sister Mental health problem Grandfather Cancer Grandmother Skin cancer Diabetes mellitus Grandfather Cancer Hyperlipidemia Alcoholic Grandmother Diabetes mellitus Social History marital status: number of children: 3 household members: family lives independently: Yes education level: college occupational status: other Smoking Status: Current every day smoker alcohol intake: current substance use type: does not use Smoking Status: Current every day smoker tobacco type: cigarettes and vaping alcohol intake frequency: 0-2 drinks per day Substance Use Type: marijuana Exam <DAYRON Mcpherson - Last Filed: 04/03/22 13:20> Narrative Exam Narrative: Exam Narrative: GENERAL: This is a well-nourished, well-developed patient, in no acute distress. HEAD: Atraumatic. Normocephalic. EYES: Pupils equal round and reactive. Extraocular motions intact. No scleral icterus, injection or drainage. CARDIOVASCULAR: Regular rate and rhythm without murmurs, peripheral pulses intact, cap refill <2 sec. RESPIRATORY: Breath sounds equal and clear bilaterally. No wheezes, rales, or rhonchi. No cough. No increased respiratory effort. No accessory muscle use. GASTROINTESTINAL: Abdomen soft, non-tender, nondistended without guarding or rebound. Mild suprapubic pain. MSK: Moves all extremities. Normal range of motion, no clubbing or edema. Neurovascularly intact. No CVA tenderness. NEURO: A&O x 3. SKIN: Warm, dry, no rashes or lesions noted. Initial Vital Signs Initial Vital Signs: Vital Signs Temperature 97.3 F L 04/03/22 10:11 Pulse Rate 75 04/03/22 10:11 Respiratory Rate 18 04/03/22 10:11 Blood Pressure 128/84 04/03/22 10:11 Pulse Oximetry 99 04/03/22 10:11 Oxygen Delivery Method 04/03/22 10:11 Reviewed <Melissa Han DO - Last Filed: 04/03/22 18:51> Initial Vital Signs Initial Vital Signs: Vital Signs Temperature 97.3 F L 04/03/22 10:11 Pulse Rate 75 04/03/22 10:11 Respiratory Rate 18 04/03/22 10:11 Blood Pressure 128/84 04/03/22 10:11 Pulse Oximetry 99 04/03/22 10:11 Oxygen Delivery Method 04/03/22 10:11 Course <DAYRON Mcpherson - Last Filed: 04/03/22 13:20> Orders Ordered: ED Orders 04/03/22 10:18 Urine Culture Stat Urine Microscopic Stat Vital Signs Vital signs: Vital Signs - 8 hr 04/03/22 12:57 Pulse Rate 73 Respiratory Rate 18 Blood Pressure 115/80 Pulse Oximetry 100 Oxygen Delivery Method Room Air <Melissa Han DO - Last Filed: 04/03/22 18:51> Orders Ordered: ED Orders 04/03/22 10:18 Urine Culture Stat Urine Microscopic Stat Vital Signs Vital signs: Vital Signs - 8 hr 04/03/22 12:57 Pulse Rate 73 Respiratory Rate 18 Blood Pressure 115/80 Pulse Oximetry 100 Oxygen Delivery Method Room Air MDM - Abdominal Pain <DAYRON Mcpherson - Last Filed: 04/03/22 13:20> Differential Diagnosis Differential diagnosis: Likely abdominal pain, constipation, endometriosis and other (UTI and lower back pain); Unlikely acute appendicitis Lab Data Labs: Lab Results 04/03/22 Range/Units 10:18 Urine RBC >100/hpf H (0-5/HPF) Urine WBC 1-5/hpf (0-5/HPF) Ur Squamous Epith Cells 5-10 /hpf H (0-5/HPF) Urine Bacteria Many (>30) H (None) Ur Culture Indicated? Specimen cultured Point of care testing: Point of Care Testing Test Results Negative Urine Dip Bedside Urine Glucose Negative Bedside Urine Bilirubin - Negative Bedside Urine Ketone - Negative Urine Specific Hobson 1.020 Bedside Urine Occult Blood +++ Bedside Urine pH 7.0 Bedside Urine Protein + 30 Bedside Urine Urobilinogen - Negative Bedside Urine Nitrite - Negative Bedside Urine Leukocytes +/- 15 Esterase MDM Narrative Medical decision making narrative: 31-year-old female presents to the emergency department with persistent uterine cramping and vaginal bleeding since her menses started 6 days ago. Lower back pain ongoing for 3 months after landing on her coccyx. Assessment was encouraging. Point of care urine dip was consistent with UTI, positive blood and leuks. Patient declined an offer for an injection of Toradol for her pain. Will place patient on antibiotics for the UTI. Strongly recommended patient follow up with her family doctor for possible workup of endometriosis and to manage her suspected constipation. Discussed plan of care and return precautions with patient, who verbalized understanding was agreeable with course of action. <Melissa Han, DO - Last Filed: 04/03/22 18:51> Lab Data Labs: Lab Results 04/03/22 Range/Units 10:18 Urine RBC >100/hpf H (0-5/HPF) Urine WBC 1-5/hpf (0-5/HPF) Ur Squamous Epith Cells 5-10 /hpf H (0-5/HPF) Urine Bacteria Many (>30) H (None) Ur Culture Indicated? Specimen cultured Point of care testing: Point of Care Testing Test Results Negative Urine Dip Bedside Urine Glucose Negative Bedside Urine Bilirubin - Negative Bedside Urine Ketone - Negative Urine Specific Hobson 1.020 Bedside Urine Occult Blood +++ Bedside Urine pH 7.0 Bedside Urine Protein + 30 Bedside Urine Urobilinogen - Negative Bedside Urine Nitrite - Negative Bedside Urine Leukocytes +/- 15 Esterase Discharge Plan Departure Patient Disposition: Home Clinical Impression: UTI (urinary tract infection) Instructions: DI for Urinary Tract Infection (UTI) Activity Restrictions/Additional Instructions: *You have been diagnosed with a urinary tract infection. We will treat this with Bactrim for the next 3 days. Please make sure you drink plenty of water with this medication. Please follow-up with your family doctor in regards to your lower back pain and take the stool softeners as previously recommended. For any worsening symptoms, please follow-up with your family doctor or return to the emergency department. *What to do: *Please continue to take your regular medications as directed. [ x] New medication prescriptions sent to your pharmacy: [[facility]] [ ] New medication written as a paper prescription [ ] No new medications given *Please follow up with your primary care provider in 2-3 days, call for an appointment. Let them know you were seen in the Emergency Department and that we ask that you be seen in follow up. We will electronically transmit a record of today's note if your PCP is in our system *If you do not have a primary care provider please contact the [facility] Resource line at [phone]. They will ask some questions about your medical history and help get you set up with a doctor in the community. ? Return to ER if you should have any new, worsening or concerning symptoms, such as worsening pain, severe headache, confusion, chest pain, difficulty breathing, fever greater than 101 F, shaking chills, persistent vomiting to the point that you cannot drink fluids, or other new or worsening symptoms. Prescriptions: New sulfamethoxazole-trimethoprim [Bactrim] 400-80 mg tablet 1 tab PO BID 3 Days Qty: 6 0RF No Action multivitamin [Multiple Vitamins] Tablet 1 tab PO DAILY Qty: 90 0RF hydroxyzine HCl 25 mg tablet 25 mg PO TID PRN (Reason: anxiety) Qty: 30 1RF lamotrigine 200 mg tablet 200 mg PO DAILY Qty: 90 1RF levothyroxine 125 mcg tablet See Rx Instructions .ROUTE .COMPLEX Qty: 30 3RF Dose Instruction: take 1 tablet by mouth every morning ON AN EMPTY STOMACH Rx Instructions: take 1 tablet by mouth every morning ON AN EMPTY STOMACH cephalexin 500 mg capsule 500 mg PO BID Qty: 10 0RF venlafaxine 225 mg tablet extended release 24hr 225 mg PO DAILY Qty: 90 0RF Referrals: Tacos Lindsay PA-C [Primary Care Provider] - Stand Alone Forms: Patient Portal/API <Melissa Han DO - Last Filed: 04/03/22 18:51> Cosign ED Attending Cosignature Attestation: I was immediately available in the department for consultation. Documentation has been reviewed. Case was discussed.
[2022-04-03 12:57] VITALS: BP 115/80; PULSE 73; RESP 18; O2SAT 100
== END 2022-04-03 12:58 | disposition home or self-care (01) ==
PROVIDERS: Emergency Medicine; Emergency Provider Registered Nurse; PCP Physician Assistant
DX: N39.0 Urinary tract infection, site not specified (principal)
CPT/HCPCS: 81003; 81015; 81025; 87086; 87147; 99282

== ENCOUNTER → 2022-04-28 13:18 | Outpatient (CLI) | payer OTHER, SELFPAY | PROVIDERS: PCP Physician Assistant; Visit Provider Nurse Practitioner Family | DX: R30.0 Dysuria (principal) | CPT/HCPCS: 87086 ==

== ENCOUNTER → 2024-01-25 12:03 | Outpatient (CLI) | payer OTHER, SELFPAY ==
[2024-01-25 13:39] LABS: Free T3, Triiodothyronine Free 2.35 pg/mL (2.77-5.27); Free T4, Direct Thyroxine 0.77 ng/dL (0.78-2.19)
[2024-01-25 13:53] LABS: Thyroid Stimulating Hormone 20.6 uIU/mL (0.47-4.68)
== END ==
PROVIDERS: PCP Family Medicine; Referring Provider Family Medicine; Visit Provider Family Medicine
DX: E03.9 Hypothyroidism, unspecified (principal)
CPT/HCPCS: 36415; 84439; 84443; 84481

== ENCOUNTER → 2024-03-13 12:37 | Outpatient (CLI) | payer OTHER, SELFPAY ==
[2024-03-13 13:35] LABS: Free T3, Triiodothyronine Free 3.32 pg/mL (2.77-5.27); Free T4, Direct Thyroxine 1.11 ng/dL (0.78-2.19)
[2024-03-13 13:49] LABS: Thyroid Stimulating Hormone 2.43 uIU/mL (0.47-4.68)
== END ==
PROVIDERS: PCP Family Medicine; Referring Provider Family Medicine; Visit Provider Family Medicine
DX: E89.0 Postprocedural hypothyroidism (principal); Z79.899 Other long term (current) drug therapy
CPT/HCPCS: 36415; 84439; 84443; 84481

== ENCOUNTER 2024-05-22 13:52 | Emergency (ER) | payer OTHER, SELFPAY ==
[2024-05-22 14:02] VITALS: BP 139/103; PULSE 79; RESP 18; TEMP 36.6; O2SAT 99; BMI 27.8
--- NOTE | 2024-05-22 14:16 | ED.URI ---
HPI - URI/Sore Throat General Chief Complaint: Upper Respiratory Symptoms Stated Complaint: may have Sinus infection, ears are clogged, Time Seen by Provider: 05/22/24 14:16 Source: patient Mode of arrival: Ambulatory History of Present Illness HPI Narrative: 34-year-old female presents to the ED with a few days of bilateral ear fullness and pain. Patient endorses having a flu-like illness 2 weeks ago, following which the ear symptoms started. Patient denies any hearing changes. Patient denies fever, chills, chest pain, shortness of breath, cough, sore throat, lightheadedness, dizziness, syncope. Patient had 1 episode of vomiting yesterday. No recent antibiotic use. Related Data Previous Rx's Medication Instructions Recorded liothyronine 5 mcg tablet (Cytomel) 5 mcg PO DAILY #30 tabs 04/23/24 amoxicillin 875 mg tablet 875 mg PO Q12H 7 days #14 tabs 05/22/24 Allergies Allergy/AdvReac Type Severity Reaction Status Date / Time hydrocodone [From Vicodin] AdvReac Mild ITCHING Verified 05/02/24 10:38 Review of Systems Constitutional Constitutional: Denies chills, Denies fatigue, Denies fever(s), Denies frequent falls, Denies lethargy and Denies weakness Eyes Eyes: Denies change in vision, Denies eye discharge, Denies irritation and Denies loss of vision ENT Ears, Nose, Mouth, and Throat: Denies change in voice, Denies dizziness, Reports ear discharge, Reports otalgia, Reports nasal congestion, Denies neck pain, Denies sore throat and Denies throat swelling Cardiovascular Cardiovascular: Denies chest pain, Denies irregular heart rhythm, Denies lightheadedness, Denies palpitations, Denies dyspnea, Denies dyspnea on exertion and Denies orthopnea Respiratory Respiratory: Denies cough, Denies dyspnea, Denies dyspnea on exertion and Denies wheezing Gastrointestinal Gastrointestinal: Denies abdominal pain, Denies change in bowel habits, Denies diarrhea, Denies nausea and Denies vomiting Musculoskeletal Musculoskeletal: Denies neck pain and Denies numbness Integumentary/Breasts Skin/Breast: Denies pruritus, Denies erythema, Denies rash and Denies wounds Neurologic Neurologic: Denies behavioral changes, Denies confusion, Denies dizziness, Denies frequent falls, Denies loss of vision, Denies numbness and Denies weakness Psychiatric Psychiatric: Denies anxiety, Denies behavioral changes, Denies confusion, Denies depression, Denies homicidal ideation and Denies suicidal ideation Endocrine Endocrine: Denies fatigue, Denies flushing and Denies palpitations Hematologic/Lymphatic Hematologic/Lymphatic: Denies easy bruising Allergic/Immunologic Allergic/Immunologic: Denies urticaria, Denies throat swelling and Denies wheezing Patient History Medical History ADHD Adult acne Eczema Anxiety Perioral dermatitis Heavy menstrual period Depression Generalized anxiety disorder with panic attacks Hypothyroidism (~2017) Surgical History Status post laparoscopic cholecystectomy Anesthesia S/P thyroidectomy (~07/21/17) Previous section (~05/14/15) Family History Mother Mental health problem Brother Cerebral palsy Brother Mental health problem Sister Mental health problem Grandfather Cancer Grandmother Skin cancer Diabetes mellitus Grandfather Cancer Hyperlipidemia Alcoholic Grandmother Diabetes mellitus Social History marital status: number of children: 3 household members: family lives independently: Yes education level: college occupational status: other Smoking Status: Current every day smoker alcohol intake: current substance use type: does not use Smoking Status: Current every day smoker tobacco type: vaping alcohol intake frequency: 0-2 drinks per day Exam Narrative Exam Narrative: Const General:?cooperative, healthy appearing and comfortable [facility] Head:?normal to inspection Ears:?hearing grossly normal bilaterally; Bilateral otitis media with bulging, erythematous tympani Nose:?external nose normal Face and sinus:?normal facial exam and sinuses nontender Mouth:?oral mucosae normal Throat:?posterior oropharynx normal Eyes General:?appearance normal, both eyes and all related structures Neck Neck:?normal visual inspection and no lymphadenopathy noted Resp Effort & Inspection:?normal respiratory effort Auscultation:?clear to auscultation bilaterally Cardio Rate:?regular rate Rhythm:?regular rhythm Neuro General:?patient alert, patient awake and patient oriented x3 Initial Vital Signs Initial Vital Signs: Vital Signs Temperature 97.8 F 05/22/24 14:02 Pulse Rate 79 04/01/25 14:02 Respiratory Rate 18 05/22/24 14:02 Blood Pressure 139/103 H 05/22/24 14:02 Pulse Oximetry 99 05/22/24 14:02 Oxygen Delivery Method Room Air 05/22/24 14:02 Course Orders Ordered: ED Orders 05/22/24 14:07 Covid-19 + FLU A/B + RSV - PCR Stat Vital Signs Vital signs: Vital Signs - 8 hr 05/22/24 14:02 Temperature 97.8 F Pulse Rate 79 Respiratory Rate 18 Blood Pressure 139/103 H Pulse Oximetry 99 Oxygen Delivery Method Room Air MDM - URI/Sore Throat Lab Data Labs: Lab Results 05/22/24 Range/Units 14:07 SARS-CoV-2 (PCR) Negative (Negative) Influenza A (RT-PCR) Flu a negative (NEGATIVE) Influenza B (RT-PCR) Flu b negative (NEGATIVE) RSV (PCR) Negative (Negative) MDM Narrative Medical decision making narrative: 34-year-old female presents to the ED with a few days of bilateral ear fullness and pain. Physical exam is consistent with bilateral otitis media. Antibiotics prescribed. Also advise Flonase for eustachian tube dysfunction. ED return precautions discussed with patient. Patient verbalized understanding. Medical records reviewed: Yes Discharge Plan Departure Patient Disposition: Home Clinical Impression: Otitis media Qualifiers: Otitis media type: unspecified Laterality: bilateral Qualified Code(s): H66.93 - Otitis media, unspecified, bilateral Instructions: Middle Ear Infection Activity Restrictions/Additional Instructions: You were evaluated in the ED today for ear discomfort. You are being prescribed antibiotics for a ear infection. Please take those as prescribed. You may also take Flonase which is [id number]. Please follow-up with your PCP as soon as possible. Return to the ED if you have worsening symptoms. Prescriptions: New amoxicillin 875 mg tablet 875 mg PO Q12H 7 Days Qty: 14 0RF No Action liothyronine [Cytomel] 5 mcg tablet 5 mcg PO DAILY Qty: 30 2RF Referrals: Tali Garcia MD [Primary Care Provider] - Stand Alone Forms: Patient Portal/API/Survey
[2024-05-22 14:52] LABS: Influenza A - CEPHEID Flu A NEGATIVE (NEGATIVE); Influenza B - CEPHEID Flu B NEGATIVE (NEGATIVE); Respiratory Syncytial Virus Negative (Negative)
[2024-05-22 14:56] LABS: COVID-19 CEPHEID 4-PLEX PCR Negative (Negative)
== END 2024-05-22 15:17 | disposition home or self-care (01) ==
PROVIDERS: Family Medicine; Emergency Provider Student in an Organized Health Care Education/Training Program; PCP Family Medicine
DX: H66.93 Otitis media, unspecified, bilateral (principal)
CPT/HCPCS: 0241U; 99281; 99282

== ENCOUNTER 2024-05-26 16:12 | Emergency (ER) | payer OTHER, SELFPAY ==
[2024-05-26 16:22] VITALS: BP 140/84; PULSE 73; RESP 16; TEMP 36.8; O2SAT 99; BMI 27.4
--- NOTE | 2024-05-26 18:01 | ED_ITS ---
HPI - General Adult General Chief complaint: Upper Respiratory Symptoms Stated complaint: Sinuses Clogged, Fungal Infection? Time Seen by Provider: 05/26/24 16:59 Source: patient, RN notes reviewed and old records reviewed Mode of arrival: Ambulatory Limitations: no limitations History of Present Illness HPI narrative: 34-year-old female history of ADHD, hypothyroidism, mood disorder presents with complaint of sinuses feeling clogged, not able to drain the fluids behind her ears appearing having a little bit of dizziness particularly when she goes around the corner in a car, she states she was having pain in her ears that is improved. She was got a lot of sinus pressure. She states she thought she was having fevers and chills that is gotten better after she has been on amoxicillin for several days. She was still having a lot of nasal drainage. She was not had any chest pain or shortness of breath. She was had some nausea. She was vomited once. Patient was concerned she might be developing a fungal infection in her sinuses for ears. She does note she was had hypothyroid in the past she was had a thyroidectomy but is taking her medication regularly. Related Data Previous Rx's Medication Instructions Recorded liothyronine 5 mcg tablet (Cytomel) 5 mcg PO DAILY #30 tabs 04/23/24 amoxicillin 875 mg tablet 875 mg PO Q12H 7 days #14 tabs 05/22/24 acetic acid 2 % ear solution 5 drp EAR-BOTH TID 10 days #15 mL 05/26/24 Allergies Allergy/AdvReac Type Severity Reaction Status Date / Time hydrocodone [From Vicodin] AdvReac Mild ITCHING Verified 05/26/24 16:26 Review of Systems Review of Systems ROS Unobtainable: All systems reviewed & are unremarkable except as noted in HPI and below Patient History Medical History ADHD Adult acne Eczema Anxiety Perioral dermatitis Heavy menstrual period Depression Generalized anxiety disorder with panic attacks Hypothyroidism (~2017) Surgical History Status post laparoscopic cholecystectomy Anesthesia S/P thyroidectomy (~07/21/17) Previous section (~05/14/15) Family History Mother Mental health problem Brother Cerebral palsy Brother Mental health problem Sister Mental health problem Grandfather Cancer Grandmother Skin cancer Diabetes mellitus Grandfather Cancer Hyperlipidemia Alcoholic Grandmother Diabetes mellitus Social History marital status: number of children: 3 household members: family lives independently: Yes education level: college occupational status: other alcohol intake: current substance use type: does not use tobacco type: vaping alcohol intake frequency: 0-2 drinks per day Exam Narrative Exam Narrative: GEN: well nourished, well appearing female, alert and oriented x 3, patient appears to be in mild distress. HEENT: Atraumatic, pupils are equal round reactive to light, extraocular movements are intact, nares have some clear rhinorrhea, patient has tenderness over maxillary sinuses, TMs are retracted bilaterally, little bit of clear fluid, canals are slightly swollen, mildly red and slightly bumpy able to visualize the TMs they are not completely swollen, there is no conjunctival pallor. Throat is clear without any exudates, erythema, tonsillar enlargement or uvular deviation HEART: Regular rate and rhythm without murmur, clicks, rubs. LUNGS:Lungs clear to auscultation, no wheezes, rales, crackles, chest moves symmetrically ABD:bowel sounds normal, soft, non-tender, no guarding, rebound, rigidity, no masses noted, no hepatosplenomegaly MSCL: full range of motion, normal gait NEURO:CN 2-12 intact, sensation normal Initial Vital Signs Initial Vital Signs: Vital Signs Temperature 98.2 F 05/26/24 16:22 Pulse Rate 73 05/26/24 16:22 Respiratory Rate 16 05/26/24 16:22 Blood Pressure 140/84 05/26/24 16:22 Pulse Oximetry 99 05/26/24 16:22 Oxygen Delivery Method Room Air 05/26/24 16:22 Course Vital Signs Vital signs: Vital Signs - 8 hr 05/26/24 16:22 Temperature 98.2 F Pulse Rate 73 Respiratory Rate 16 Blood Pressure 140/84 Pulse Oximetry 99 Oxygen Delivery Method Room Air Medical Decision Making MDM Narrative Medical decision making narrative: 34-year-old female recently started on amoxicillin for which she says is otitis media/sinus infection she was had some improvement her chills have improved. She has been doing nasal rinses, she has been using her hydroxyzine as an antihistamine. She continues to have a lot of sinus pressure and difficulty popping her ears. She was expecting to fly in the next 24-48 hours as concerned. She has also got some concern about potential fungal infection in her sinuses. Discussed with the patient continue her current course with her antibiotics, nasal rinses antihistamines can add Sudafed or similar. She was also using Flonase regularly. She does not appear to have little bit of an otitis externa we will add on antibiotic drops and if not improving would recommend follow up with ENT. She was nontoxic, well-appearing. Discharge Plan Departure Patient Disposition: Home Clinical Impression: Otitis externa, Sinusitis Instructions: DI for Sinusitis Activity Restrictions/Additional Instructions: Follow up if you are not having any improvement did include contact for ENT your ear nose throat physician if you are having persistent symptoms. Continue your antibiotics until completed. Continue with nasal rinses, antihistamine such as your hydroxyzine, Flonase. You may find it helpful to take medications similar to Sudafed this can sometimes help open up your Eustachian tubes cause of the drain better. You do has a little bit of infection within the canals of your ears I would recommend ear drops. Prescription was sent to [facility] in [place]. Please return for fevers, new or worsening symptoms, severe headaches, swelling or redness of your face, persistent vomiting or other new or concerning changes. Prescriptions: New acetic acid 2 % solution 5 drp EAR-BOTH TID 10 Days Qty: 15 0RF No Action liothyronine [Cytomel] 5 mcg tablet 5 mcg PO DAILY Qty: 30 2RF amoxicillin 875 mg tablet 875 mg PO Q12H 7 Days Qty: 14 0RF Referrals: Humberto Foy MD [Physician] - Tali Garcia MD [Primary Care Provider] - Stand Alone Forms: Patient Portal/API/Survey
[2024-05-26 18:55] VITALS: BP 145/85; PULSE 69; RESP 16; O2SAT 99
== END 2024-05-26 18:55 | disposition home or self-care (01) ==
PROVIDERS: Emergency Provider Emergency Medicine; PCP Family Medicine
DX: H60.90 Unspecified otitis externa, unspecified ear (principal); J32.9 Chronic sinusitis, unspecified
CPT/HCPCS: 99281